=== PATIENT | male | born 1955 | race Caucasian/White ===

== ENCOUNTER 2018-04-07 18:25 | Inpatient (IN) | payer BC ==
[~2018-04-07] VITALS: Ht 177.8 cm; Wt 123.5 kg
[2018-04-07] MEDS ORDERED: ONDANSETRON INJ 2 MG/ML 2 ML VIAL IV STA (18:50)
[2018-04-07] MEDS ORDERED: DEXAMETHASONE IV STA (18:50)
[2018-04-07] MEDS ORDERED: KETOROLAC TROMETHAMINE 30 MG/ML VIAL IV STA (18:50)
[2018-04-07] MEDS ORDERED: MoRPHine SULFATE 10 MG/ML CARP/VIAL IV STA (18:50)
[2018-04-07] MEDS ORDERED: DEXTROSE 5% IV STA (18:50)
[2018-04-07] MEDS ORDERED: DEXAMETHASONE INJ 10 MG in SYRINGE 0 ML IV SCH (18:54)
[2018-04-07] MEDS ORDERED: HYDROmorphone INJ 2 MG/ML SYR/VIAL IV STA (20:29)
--- NOTE | 2018-04-07 20:40 | DIAGNOSTIC IMAGING REPORT ---
L-SPINE MIN 4 VIEWS ROUTINE CLINICAL HISTORY: Low back pain with right-sided radiculopathy. COMPARISON: None FINDINGS: 5 lumbar type vertebra are noted. Note is made of 5 mm anterolisthesis of L4 and L5. No fracture or suspicious lesion is noted. There is mild to moderate disc space narrowing and facet arthrosis of the lumbar spine with mild osteophytosis. IMPRESSION: 1. No acute lumbar spine fracture or subluxation. 2. 5 mm of anterolisthesis of L4 and L5. 3. Aecb-hb-eyflujjb multilevel disc space narrowing and facet arthrosis of the lumbar spine. Electronically signed by: Zi Haddad M.D. 04/07/2018 8:38 PM Dictated Date/Time: 04/07/2018 8:37 PM
[2018-04-07] MEDS ORDERED: OXYC-737 PO (20:47)
--- NOTE | 2018-04-07 20:49 | EMERGENCY ROOM VISIT NOTE ---
History First contact with patient: 18:35 Chief Complaint: HIP PAIN Stated Complaint: RIGHT HIP PAIN History of Present Illness The patient is a 62 year old male who presents to the Emergency Room with complaints of low back pain with pain radiating into his right buttocks and right legs. The patient states that on Tuesday he started with low back pain and pain radiating into his right buttocks. It then started going down his right leg. He went to his family doctor yesterday for his symptoms and was placed on Medrol Dosepak and Flexeril. He was not given any pain medication. He states the Flexeril is not helping. His family doctor is in law came in at [facility]. The patient denies any trauma to his back. The patient states the pain is worse with sitting. He states standing and leaning forward improves his pain. He describes the pain as a sharp pain. The patient denies any urinary symptoms of frequency, urgency, dysuria. The patient denies any loss of bowel or bladder control or any saddle anesthesia. The patient denies any history of chronic back pain. Review of Systems 10 system review was performed and was negative unless stated otherwise history of present illness. Past Medical/Surgical History Hypertension, diabetes Social History Smoking Status: Current Every Day Smoker Alcohol Use: occasionally Marital Status: Housing Status: lives with family Occupation Status: unemployed Physical Exam Vital Signs Date Time Temp Pulse Resp B/P (MAP) Pulse Ox O2 Delivery O2 Flow Rate FiO2 04/07/18 20:20 80 16 164/76 95 Room Air 04/07/18 18:29 36.0 91 18 202/78 96 Room Air Physical Exam PHYSICAL EXAM: Vital Signs were reviewed. Patient's blood pressure is elevated at 202/78 reviewed Nurse's notes and agree. GENERAL: 62-year-old white male appears uncomfortable secondary to back pain. MENTAL STATUS: Alert and oriented 3 LUMBAR SPINE: No gross bony abnormality noted. Patient is nontender to palpation over the spinous processes. He is tender to palpation over the right paravertebral region, left side nontender. He has limited range of motion secondary to pain. Pain elicited with flexion, extension and right lateral bending. Muscle strength is 5 out of 5 bilateral lower extremities and symmetrical. NEURO: Negative straight leg bilaterally. Unable to do thorough neuro exam secondary to patient's pain. Medical Decision & Procedures ER Provider Diagnostic Interpretation: L-SPINE MIN 4 VIEWS ROUTINE CLINICAL HISTORY: Low back pain with right-sided radiculopathy. COMPARISON: None FINDINGS: 5 lumbar type vertebra are noted. Note is made of 5 mm anterolisthesis of L4 and L5. No fracture or suspicious lesion is noted. There is mild to moderate disc space narrowing and facet arthrosis of the lumbar spine with mild osteophytosis. IMPRESSION: 1. No acute lumbar spine fracture or subluxation. 2. 5 mm of anterolisthesis of L4 and L5. 3. [id number]-[id number] multilevel disc space narrowing and facet arthrosis of the lumbar spine. Electronically signed by: Zi Haddad M.D. 04/07/2018 8:38 PM Medications Administered Medications (Trade) Dose Ordered Sig/Sander Route Start Time Stop Time Status Last Admin Dose Admin Ketorolac Tromethamine (Toradol Inj) 30 mg NOW STAT IV 04/07/18 18:50 04/07/18 18:54 DC 04/07/18 19:20 30 MG Morphine Sulfate (MoRPHine SULFATE INJ) 6 mg NOW STAT IV 04/07/18 18:50 04/07/18 18:54 DC 04/07/18 19:19 6 MG Ondansetron HCl (Zofran Inj) 4 mg NOW STAT IV 04/07/18 18:50 04/07/18 18:54 DC 04/07/18 19:18 4 MG Dexamethasone Sodium Phosphate 10 mg/Syringe 2.5 ml @ 1 mls/min TODAY@1854 IV 04/07/18 18:54 04/07/18 20:15 DC 04/07/18 20:10 1 MLS/MIN ED Course Patient was evaluated. IV access was obtained. The patient's blood pressure was elevated but he stated that he did not take his blood pressure medicine today. It was elevated at 202/78. It was later rechecked and was 164/76. The patient was given Decadron 10 mg IV, Toradol 30 mg IV, morphine 6 mg IV and Zofran 4 mg IV. The patient was reevaluated and was feeling better but was unable to ambulate even with a walker. Therefore the patient was given additional 2 mg of Dilaudid IV. X-ray of the lumbar spine was ordered interpreted by the radiologist as above with 5 mm anterior listhesis of the L4 on L5. Also multilevel disc space narrowing. The patient was informed of the findings. At this point the patient was awaiting his injection of Dilaudid. He was at the end of my shift and therefore the patient's case was signed out to Macie Babcock PA-C at the end of my shift. Please see her note for further patient care. Medical Decision Differential diagnosis include herniated lumbar disc, sciatica, lumbar fracture , spinal stenosis [place] Drug Monitoring Program Search Results: patient reviewed within database Medication Reconcilliation Current Medication List: was personally reviewed by me Blood Pressure Screening Patient's blood pressure: Elevated blood pressure Blood pressure disposition: Elevated BP felt to be situational Impression Primary Impression: Lumbar back pain with radiculopathy affecting right lower extremity Departure Information Condition GOOD Prescriptions Oxycodone Immediate Rel Tab (ROXICODONE IR) 5 Mg Tab 1-2 TAB PO Q4H Y for Pain, #24 TAB Prov: Brenda Talamantes PA-C 04/07/18 Referrals Mg Wilson M.D. (PCP) Marshall Rowe,D.O. Forms HOME CARE DOCUMENTATION FORM, IMPORTANT VISIT INFORMATION, WORK / SCHOOL INSTRUCTIONS Patient Instructions My [facility] Additional Instructions Ibuprofen 600 mg every 6 hours with food for pain. Continue Medrol Dosepak as prescribed. Continue Flexeril as prescribed. Take OxyIR as needed for more severe pain. Do not drive while taking the OxyIR. Call Dr. Rowe for follow- up appointment. If symptoms worsen in the interim, return to ER.
[2018-04-07] MEDS ORDERED: OXYCODONE IR HOME PACK PO ONE (21:45)
[2018-04-07] MEDS ORDERED: CYCL10TA6 PO (22:12)
[2018-04-07] MEDS ORDERED: SITA100T3 PO (22:12)
[2018-04-07] MEDS ORDERED: METF-384 PO (22:12)
[2018-04-07] MEDS ORDERED: ATOR-24 PO (22:12)
[2018-04-07] MEDS ORDERED: ACT30 PO (22:12)
[2018-04-07] MEDS ORDERED: METH1TAB81 PO (22:12)
[2018-04-07] MEDS ORDERED: LISI-729 PO (22:12)
--- NOTE | 2018-04-07 22:16 | EMERGENCY ROOM VISIT NOTE ---
ED Visit Note Care of this patient was signed out to me at change of shift by KIRIT Dominguez. Please see her dictation for full HPI, exam and ED course. At change of shift, the patient was awaiting pain medication and reevaluation. On my reevaluation, the patient was still unable to walk across the room. He could take 3-4 steps, then could not walk any further. At this time, he had already received narcotic medications 2 as well as Toradol and Decadron. His was not comfortable taking him home as she does not feel that she would be able to get him into the house and upstairs. I did inform them that if he was admitted this would likely be an observation and they are aware of this. An MRI was ordered and the case was discussed with the [facility] hospitalist service, who agreed to evaluate the patient.
--- NOTE | 2018-04-07 22:51 | DIAGNOSTIC IMAGING REPORT ---
MRI OF THE LUMBAR SPINE WITHOUT CONTRAST CLINICAL HISTORY: Low back pain with right-sided radiculopathy. Leg weakness. COMPARISON STUDY: Lumbar spine radiographs April 07, 2018. TECHNIQUE: Utilizing a 1.5 Thuy magnet and dedicated coil, multiplanar, multiecho imaging of the lumbar spine was performed without IV contrast. FINDINGS: For purposes of numbering on this exam, the L5-S1 disc space is assigned to axial image 27 of 30. There is 3 mm retrolisthesis of L4 and L5 due to facet arthrosis. Vertebral body heights are maintained. There is no suspicious marrow replacement. No intracanalicular mass or fluid collection is present. Conus terminates at the L1 level. Paravertebral soft tissues are unremarkable. L1-2: The central canal and the neural foramen are patent. L2-3: Tiny right paracentral disc protrusion is noted. Central canal and neural foramen are patent. L3-4: There is facet arthrosis. There is minimal disc bulge. Central canal and neural foramen are patent. L4-5: Note is made of grade I anterolisthesis due to facet arthrosis. There is uncovering of the disc. Note is made of a 7 mm right foraminal disc extrusion. This may contact the exiting right L4 nerve root. It is made of severe facet arthrosis at this level with ligamentous hypertrophy. There is moderate narrowing of the central canal and lateral recesses. L5-S1: A small central disc protrusion is noted. There is mild narrowing of the central canal. Neural foramen are patent. IMPRESSION: 1. 7 mm right foraminal disc extrusion at L4-L5 which may contact the right exiting right L4 nerve root. 2. Moderate central canal stenosis at L4-L5 due to mild anterolisthesis, uncovering of the disc, facet arthrosis and ligamentous hypertrophy. 3. Small central disc protrusion at L5-S1 that results in mild narrowing of the central canal. Electronically signed by: Zi Haddad M.D. 04/07/2018 10:49 PM Dictated Date/Time: 04/07/2018 10:42 PM
[2018-04-07 23:11] LABS: BASO % 0.1 %; BASO ABS # 0.01 K/uL (0-0.2); EOS % 0.2 %; EOS ABS # 0.03 K/uL (0-0.5); HEMATOCRIT 40.8 % (42-52); HEMOGLOBIN 14.1 g/dL (14.0-18.0); IG# 0.05 K/uL (0.00-0.02); LYMPH % 11.7 %; LYMPH ABS # 1.44 K/uL (1.2-3.4); MEAN CELL VOLUME 91.9 fL (80-100); MEAN CORPUSCULAR HEMOGLOBIN 31.8 pg (25-34); MEAN CORPUSCULAR HGB CONC 34.6 g/dl (32-36); MEAN PLATELET VOLUME 10.3 fL (7.4-10.4); MONO % 3.3 %; NEUT % 84.3 %; NEUT ABS # 10.33 K/uL (1.4-6.5); PLATELET COUNT 231 K/uL (130-400); RED CELL DISTRIBUTION WIDTH CV 12.9 % (11.5-14.5); RED CELL DISTRIBUTION WIDTH SD 43.4 fL (36.4-46.3); WHITE BLOOD COUNT 12.26 K/uL (4.8-10.8)
[2018-04-07 23:26] LABS: BLOOD UREA NITROGEN 15 mg/dl (7-18); CREATININE 1.04 mg/dl (0.60-1.40); GLUCOSE 203 mg/dl (70-99)
[2018-04-07 23:27] LABS: ALBUMIN 4.4 gm/dl (3.4-5.0); ALKALINE PHOSPHATASE 63 U/L (45-117); ALT/SGPT 59 U/L (12-78); AST/SGOT 25 U/L (15-37); CALCIUM 9.3 mg/dl (8.5-10.1); CARBON DIOXIDE 27 mmol/L (21-32); POTASSIUM 4.2 mmol/L (3.5-5.1); SODIUM 138 mmol/L (136-145); TOTAL PROTEIN 7.8 gm/dl (6.4-8.2)
[2018-04-08] MEDS ORDERED: ACETAMINOPHEN 325 MG TAB PO PRN (00:30)
[2018-04-08] MEDS ORDERED: GLUCOSE 40% GEL 15 GM TUBE PO PRN (00:45)
[2018-04-08] MEDS ORDERED: CARBOHYDRATES FOR HYPOGLYCEMIA PO PRN (00:45)
[2018-04-08] MEDS ORDERED: DEXTROSE 50% 50 ML SYR IV PRN (00:45)
[2018-04-08] MEDS ORDERED: DEXAMETHASONE INJ 10 MG in SYRINGE 0 ML IV STA (00:45)
[2018-04-08] MEDS ORDERED: ONDANSETRON INJ 2 MG/ML 2 ML VIAL IV PRN (00:45)
[2018-04-08] MEDS ORDERED: GLUCAGON FOR INJ 1 MG VIAL SQ PRN (00:45)
[2018-04-08] MEDS ORDERED: GLUCOSE 10 TABS/TUBE PO PRN (00:45)
[2018-04-08] MEDS ORDERED: DEXAMETHASONE SOD INJ 10 MG/ML VIAL ONE (00:52)
[2018-04-08 01:40] VITALS: BP 177/83; PULSE 73; TEMP 36.7; O2SAT 91; Ht 177.8 cm; Wt 123.5 kg
[2018-04-08] MEDS ORDERED: PATIENT'S HEIGHT AND/OR WEIGHT NEEDED SCH (02:00)
[2018-04-08] MEDS ORDERED: MoRPHine SULFATE 4 MG/ML 1 ML CARP\\VIAL IV PRN (03:30)
--- NOTE | 2018-04-08 05:02 | History and Physical ---
History & Physical Date & Time of Service: Apr 08, 2018 at 04:51 Chief Complaint: Lumbar Back Pain With Radiculopathy Affecting Primary Care Physician: Chava Georges PA-C History of Present Illness Source: patient, family The patient is a 62-year-old male who presents emergency department with severe low back pain radiating into right buttocks and right leg. When seen by his family doctor yesterday, he was given Medrol Dosepak and Flexeril, with little improvement. His pain is worse with sitting, and reports that standing and leaning forward improves his pain. He has not had any loss of bowel or bladder control. He denies any recent trauma. 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 Family History Noncontributory Social History Smoking Status: Current Every Day Smoker Smokeless Tobacco Use: No Alcohol Use: none Drug Use: none Marital Status: Housing status: lives with family Occupational Status: unemployed Immunizations History of Influenza Vaccine: Unknown History of Tetanus Vaccine?: Unknown History of Pneumococcal: Unknown History of Hepatitis B Vaccine: Unknown Allergies Coded Allergies: No Known Allergies (Unverified , 04/07/18) Home Medications Scheduled Atorvastatin (Lipitor), 40 MG PO DAILY Lisinopril (Zestril), 5 MG PO DAILY Metformin Hcl (Glucophage), 1,000 MG PO BID Methylprednisolone (Medrol), 4 MG PO UD Pioglitazone (Actos), 1 TAB PO DAILY Sitagliptin Phosphate (Januvia), 100 MG PO DAILY Scheduled PRN Cyclobenzaprine Hcl (Flexeril), 10 MG PO BID PRN for Muscle Spasms Oxycodone Immediate Rel Tab (Roxicodone Ir), 1-2 TAB PO Q4H PRN for Pain Review of Systems The patient denies chest pain, palpitations, shortness of breath, dyspnea on exertion, cough, lower extremity swelling, sore throat, fevers, chills, sweats, weight change, fatigue, nausea, vomiting, diarrhea , constipation, abdominal pain, pelvic pain, blood in urine or stool, dysuria, urinary frequency or urgency, lightheadedness , dizziness, headache, memory loss, loss of consciousness, rash, abnormal bruising or bleeding, imbalance, focal or generalized weakness, numbness or tingling in arms, generalized arthralgias or myalgias, neck pain, or night sweats. The review of systems is otherwise negative other than for that already noted above, and at least 10 systems have been reviewed. Physical Exam Vital Signs Date Time Temp Pulse Resp B/P (MAP) Pulse Ox O2 Delivery O2 Flow Rate FiO2 04/08/18 01:40 36.7 73 18 177/83 91 Room Air 04/08/18 00:58 80 18 142/63 93 Room Air 04/07/18 23:00 86 18 130/61 94 Room Air 04/07/18 20:20 80 16 164/76 95 Room Air 04/07/18 18:29 36.0 91 18 202/78 96 Room Air The patient is awake, alert and oriented 3, well developed and well nourished, normocephalic and atraumatic, lying in bed on his left side, and in no acute distress. HEENT--PERRL, EOMI, mucous membranes and oropharynx dry. Neck--supple. No JVD. No bruits. Thyroid normal, trachea midline, no adenopathy. Heart--normal S1 and S2. No murmurs, rubs or gallops. Lungs--clear bilaterally, no respiratory distress, no accessory muscle use. Abdomen--normal bowel sounds and soft. Nontender. Nondistended, no hernias or masses, no organomegaly. Extremities--no cyanosis or clubbing. No edema. There are good distal pulses b/ l. Dermatologic--normal skin turgor, normal color, no abnormal lymph nodes, no rash. Neurologic--cranial nerves II through XII grossly intact. Rheumatologic--normal range of motion. Psychiatric--normal affect. Diagnostics Laboratory Results Results Past 24 Hours Test 04/07/18 22:55 Range/Units White Blood Count 12.26 4.8-10.8 K/uL Red Blood Count 4.44 4.7-6.1 M/uL Hemoglobin 14.1 14.0-18.0 g/dL Hematocrit 40.8 42-52 % Mean Corpuscular Volume 91.9 80-100 fL Mean Corpuscular Hemoglobin 31.8 25-34 pg Mean Corpuscular Hemoglobin Concent 34.6 32-36 g/dl Platelet Count 231 130-400 K/uL Mean Platelet Volume 10.3 7.4-10.4 fL Neutrophils (%) (Auto) 84.3 % Lymphocytes (%) (Auto) 11.7 % Monocytes (%) (Auto) 3.3 % Eosinophils (%) (Auto) 0.2 % Basophils (%) (Auto) 0.1 % Neutrophils # (Auto) 10.33 1.4-6.5 K/uL Lymphocytes # (Auto) 1.44 1.2-3.4 K/uL Monocytes # (Auto) 0.40 0.11-0.59 K/uL Eosinophils # (Auto) 0.03 0-0.5 K/uL Basophils # (Auto) 0.01 0-0.2 K/uL RDW Standard Deviation 43.4 36.4-46.3 fL RDW Coefficient of Variation 12.9 11.5-14.5 % Immature Granulocyte % (Auto) 0.4 % Immature Granulocyte # (Auto) 0.05 0.00-0.02 K/uL Sodium Level 138 136-145 mmol/L Potassium Level 4.2 3.5-5.1 mmol/L Chloride Level 103 98-107 mmol/L Carbon Dioxide Level 27 21-32 mmol/L Anion Gap 7.0 3-11 mmol/L Blood Urea Nitrogen 15 7-18 mg/dl Creatinine 1.04 0.60-1.40 mg/dl Estimated GFR () 89.4 Estimated GFR (Non- 77.1 BUN/Creatinine Ratio 14.0 10-20 Random Glucose 203 70-99 mg/dl Calcium Level 9.3 8.5-10.1 mg/dl Total Bilirubin 0.5 0.2-1 mg/dl Direct Bilirubin 0.2 0-0.2 mg/dl Aspartate Amino Transf (AST/SGOT) 25 15-37 U/L Alanine Aminotransferase (ALT/SGPT) 59 12-78 U/L Alkaline Phosphatase 63 45-117 U/L Total Protein 7.8 6.4-8.2 gm/dl Albumin 4.4 3.4-5.0 gm/dl Diagnostic Radiology Patient Name: LINDA VIZCAINO Unit Number: [id number] Dictated: 04/07/182036 Transcribed: 04/07/182036 JA Printed Date/Time: [~ rep prt dt]/[~ rep prt tm] [~ rep ct labl] - [~ rep ct ivnm] [facility] [place] [address] Dictated: 04/07/182036 Transcribed: 04/07/182036 JA Printed Date/Time: [~ rep prt dt]/[~ rep prt tm] [~ rep ct labl] - [~ rep ct ivnm] L-SPINE MIN 4 VIEWS ROUTINE CLINICAL HISTORY: Low back pain with right-sided radiculopathy. COMPARISON: None FINDINGS: 5 lumbar type vertebra are noted. Note is made of 5 mm anterolisthesis of L4 and L5. No fracture or suspicious lesion is noted. There is mild to moderate disc space narrowing and facet arthrosis of the lumbar spine with mild osteophytosis. IMPRESSION: 1. No acute lumbar spine fracture or subluxation. 2. 5 mm of anterolisthesis of L4 and L5. 3. Yitq-lm-miiosksy multilevel disc space narrowing and facet arthrosis of the lumbar spine. Electronically signed by: Zi Haddad M.D. 04/07/2018 8:38 PM Dictated Date/Time: 04/07/2018 8:37 PM The status of this report is Signed. Draft = Not yet reviewed or approved by Radiologist. Signed = Reviewed and approved by Radiologist. <AttendingPhy></AttendingPhy> <FamilyPhy>Chava Georges PA-C</FamilyPhy> < PrimaryPhy>Chava Georges PA-C</PrimaryPhy> <UnitNumber>[id number]</UnitNumber> < VisitNumber>[id number]</VisitNumber> <PatientName>LINDA VIZCAINO</PatientName> < DateOfBirth>1955</DateOfBirth> <Location>[facility]</Location> <ServiceDate></ServiceDate> <MNE>ESINDI</MNE> <OrderingPhy>Brenda Talamantes PA-C</ OrderingPhy> <OrderingPhyMNE>f rep ord dr phillips</OrderingPhyMNE> <DictatingPhyMNE> f rep dict dr phillips</DictatingPhyMNE> <CCListMNE>f rep ct mne</CCListMNE> < AdmittingPhyMNE>f pt admit dr phillips</AdmittingPhyMNE> <AttendingPhyMNE>f pt attend dr phillips</AttendingPhyMNE> <ConsultingPhyMNE>f pt consult dr phillips</ConsultingPhyMNE> <FamilyPhyMNE>f pt fam dr phillips</FamilyPhyMNE> <OtherPhyMNE>f pt other dr phillips</OtherPhyMNE> < PrimaryPhyMNE>f pt prim care dr phillips</PrimaryPhyMNE> <ReferringPhyMNE>f pt referring dr phillips</ReferringPhyMNE> Patient Name: LINDA VIZCAINO Unit Number: [id number] Dictated: 04/07/182241 Transcribed: 04/07/182241 JA Printed Date/Time: [~ rep prt dt]/[~ rep prt tm] [~ rep ct labl] - [~ rep ct ivnm] [facility] [place] [address] Dictated: 04/07/182241 Transcribed: 04/07/182241 JA Printed Date/Time: [~ rep prt dt]/[~ rep prt tm] [~ rep ct labl] - [~ rep ct ivnm] [~ rep ct add3]] MRI OF THE LUMBAR SPINE WITHOUT CONTRAST CLINICAL HISTORY: Low back pain with right-sided radiculopathy. Leg weakness. COMPARISON STUDY: Lumbar spine radiographs April 07, 2018. TECHNIQUE: Utilizing a 1.5 Thuy magnet and dedicated coil, multiplanar, multiecho imaging of the lumbar spine was performed without IV contrast. FINDINGS: For purposes of numbering on this exam, the L5-S1 disc space is assigned to axial image 27 of 30. There is 3 mm retrolisthesis of L4 and L5 due to facet arthrosis. Vertebral body heights are maintained. There is no suspicious marrow replacement. No intracanalicular mass or fluid collection is present. Conus terminates at the L1 level. Paravertebral soft tissues are unremarkable. L1-2: The central canal and the neural foramen are patent. L2-3: Tiny right paracentral disc protrusion is noted. Central canal and neural foramen are patent. L3-4: There is facet arthrosis. There is minimal disc bulge. Central canal and neural foramen are patent. L4-5: Note is made of grade I anterolisthesis due to facet arthrosis. There is uncovering of the disc. Note is made of a 7 mm right foraminal disc extrusion. This may contact the exiting right L4 nerve root. It is made of severe facet arthrosis at this level with ligamentous hypertrophy. There is moderate narrowing of the central canal and lateral recesses. L5-S1: A small central disc protrusion is noted. There is mild narrowing of the central canal. Neural foramen are patent. IMPRESSION: 1. 7 mm right foraminal disc extrusion at L4-L5 which may contact the right exiting right L4 nerve root. 2. Moderate central canal stenosis at L4-L5 due to mild anterolisthesis, uncovering of the disc, facet arthrosis and ligamentous hypertrophy. 3. Small central disc protrusion at L5-S1 that results in mild narrowing of the central canal. Electronically signed by: Zi Haddad M.D. 04/07/2018 10:49 PM Dictated Date/Time: 04/07/2018 10:42 PM The status of this report is Signed. Draft = Not yet reviewed or approved by Radiologist. Signed = Reviewed and approved by Radiologist. <AttendingPhy></AttendingPhy> <FamilyPhy>Chava Georges PA-C</FamilyPhy> < PrimaryPhy>Chava Georges PA-C</PrimaryPhy> <UnitNumber>[id number]</UnitNumber> < VisitNumber>[id number]</VisitNumber> <PatientName>LINDA VIZCAINO</PatientName> < DateOfBirth>1955</DateOfBirth> <Location>[facility]</Location> <ServiceDate></ServiceDate> <MNE>ESINDI</MNE> <OrderingPhy>Macie Babcock PA-C</ OrderingPhy> <OrderingPhyMNE>f rep ord dr phillips</OrderingPhyMNE> <DictatingPhyMNE> f rep dict dr phillips</DictatingPhyMNE> <CCListMNE>f rep ct jacqueline</CCListMNE> < AdmittingPhyMNE>f pt admit dr phillips</AdmittingPhyMNE> <AttendingPhyMNE>f pt attend dr phillips</AttendingPhyMNE> <ConsultingPhyMNE>f pt consult dr mne</ConsultingPhyMNE> <FamilyPhyMNE>f pt fam dr phillips</FamilyPhyMNE> <OtherPhyMNE>f pt other dr phillips</OtherPhyMNE> < PrimaryPhyMNE>f pt prim care dr phillips</PrimaryPhyMNE> <ReferringPhyMNE>f pt referring dr phillips</ReferringPhyMNE> Impression Assessment and Plan Lumbar degenerative disc disease/7 mm right foraminal disc extrusion at L4-L5 which may contact the right L4 exiting nerve root/moderate central canal stenosis at L4-5 with facet arthrosis and ligamentous hypertrophy/small central disc protrusion at L5-S1 causing mild narrowing of the central canal-- Admit to nonmonitored bed. Give Decadron 10 mg IV now. Continue Decadron at 4 mg IV every 6 hours. Continue Flexeril 10 mg p.o. 4 times daily as needed muscle spasm. K pad. [place] 5/325, 1 p.o. every 6 hours as needed moderate pain. Morphine sulfate 4 mg IV every 2 hours as needed severe pain. Consult Dr. Rowe from orthopedic spine surgery. Diabetes mellitus--placed on Accu-Cheks before meals and at bedtime with NovoLog coverage per scale. Hyperlipidemia-- Continue atorvastatin 40 mg daily. Advanced Directives Existing Advance Directive: No Existing Living Will: No Existing Power of Auditing Manager: No Resuscitation Status VTE Prophylaxis Will order VTE Prophylaxis: Yes Social Service Consult None Apply
[2018-04-08] MEDS: DEXAMETHASONE INJ 4 MG in SYRINGE 0 ML IV SCH ×3 (06:13→18:55)
[2018-04-08 06:45] VITALS: BP 160/80; PULSE 66; TEMP 36.7; O2SAT 93
[2018-04-08] MEDS: ACETAMINOPHEN IV 100 ML IV PRN (07:39)
[2018-04-08] MEDS: ATORVASTATIN 20 MG TAB PO SCH (07:39)
[2018-04-08] MEDS: CYCLOBENZAPRINE HCL 10 MG TAB PO PRN (07:39)
--- NOTE | 2018-04-08 08:59 | Orthopedic Consultation ---
Orthopedic Consultation Date of Consultation: Apr 08, 2018. Attending Physician: Marshall Ornelas M.D. 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 He states on Tuesday began experiencing back and right buttock as well as thigh and pain radiating below the knee. He denies any specific trauma fall or event. He denies any previous history of significant back issues injections or therapy. He states his left lower extremity is asymptomatic. He was unable to sleep secondary to pain. He came to emergency room seeking help and was subsequently admitted. X-rays of lumbar spine demonstrates significant multilevel spondylosis with anterolisthesis L4-5. MRI confirms marked facet hypertrophy evidence of instability of L4-5. There is adjacent level spondylosis throughout the spine as well as midline disc protrusion at L5-S1. There is a disc herniation with migration out into the lateral recess and foraminal L4-5 on the right. This is concordant with his symptoms. Past Medical/Surgical History Medical Problems: (1) Lumbar back pain with radiculopathy affecting right lower extremity Status: Acute Social History Smoking Status: Current Every Day Smoker Smokeless Tobacco Use: No Alcohol Use: none Drug Use: none Marital Status: Housing Status: lives with family Occupation Status: unemployed Allergies Coded Allergies: No Known Allergies (Unverified , 04/07/18) Home Medications Scheduled Atorvastatin (Lipitor), 40 MG PO DAILY Lisinopril (Zestril), 5 MG PO DAILY Metformin Hcl (Glucophage), 1,000 MG PO BID Methylprednisolone (Medrol), 4 MG PO UD Pioglitazone (Actos), 1 TAB PO DAILY Sitagliptin Phosphate (Januvia), 100 MG PO DAILY Scheduled PRN Cyclobenzaprine Hcl (Flexeril), 10 MG PO BID PRN for Muscle Spasms Oxycodone Immediate Rel Tab (Roxicodone Ir), 1-2 TAB PO Q4H PRN for Pain Current Inpatient Medications Current Inpatient Medications Medications (Trade) Dose Ordered Sig/Sander Route Start Time Stop Time Status Last Admin Dose Admin Acetaminophen (Tylenol Tab) 650 mg Q4H PRN PO 04/08/18 00:30 05/08/18 00:29 Heparin Sodium (Porcine) (Heparin Sq 5000 Unit/0.5ml) 5,000 unit Q12H SQ 04/08/18 09:00 05/08/18 08:59 UNV Atorvastatin Calcium (Lipitor Tab) 40 mg DAILY PO 04/08/18 09:00 05/08/18 08:59 04/08/18 07:39 40 MG Cyclobenzaprine HCl (Flexeril Tab) 10 mg QID PRN PO 04/08/18 00:30 05/08/18 00:29 04/08/18 07:39 10 MG Ondansetron HCl (Zofran Inj) 4 mg Q6H PRN IV 04/08/18 00:45 05/08/18 00:44 Insulin Aspart (novoLOG ASPART) SLIDING SCALE If C... ACHS SC 04/08/18 07:00 05/08/18 06:59 Glucose (Glucose 40% Gel) 15-30 GRAMS 15 GRAMS... UD PRN PO 04/08/18 00:45 05/08/18 00:44 Glucose (Glucose Chew Tab) 4-8 Tablets 4 Tabl... UD PRN PO 04/08/18 00:45 05/08/18 00:44 Dextrose (Dextrose 50% 50ML Syringe) 25-50ML OF 50% DW IV FOR... UD PRN IV 04/08/18 00:45 05/08/18 00:44 Glucagon (Glucagon Inj) 1 mg UD PRN SQ 04/08/18 00:45 05/08/18 00:44 Carbohydrates (Carbohydrates For Hypoglycemia) 15-30 GRAMS 15 grams if BSG 54-69... UD PRN PO 04/08/18 00:45 05/08/18 00:44 Acetaminophen 100 ml @ 400 mls/hr Q8H PRN IV 04/08/18 00:45 05/08/18 00:44 04/08/18 07:39 400 MLS/HR Acetaminophen/ Hydrocodone Bitart ([place] 5/325 Tab) 1 tab Q6H PRN PO 04/08/18 03:30 04/22/18 03:29 Morphine Sulfate (MoRPHine SULFATE INJ) 4 mg Q2H PRN IV 04/08/18 03:30 04/22/18 03:29 Dexamethasone Sodium Phosphate 4 mg/Syringe 1 ml @ 1 mls/min Q6H IV 04/08/18 06:45 05/08/18 06:44 7/28/18 06:13 1 MLS/MIN Physical Exam Date Time Temp Pulse Resp B/P (MAP) Pulse Ox O2 Delivery O2 Flow Rate FiO2 04/08/18 07:39 Room Air 04/08/18 06:45 36.7 66 18 160/80 (106) 93 Room Air 04/08/18 02:00 Room Air 04/08/18 01:40 36.7 73 18 177/83 91 Room Air 04/08/18 00:58 80 18 142/63 93 Room Air 04/07/18 23:00 86 18 130/61 94 Room Air 04/07/18 20:20 80 16 164/76 95 Room Air 04/07/18 18:29 36.0 91 18 202/78 96 Room Air On exam he is in obvious distress. He is lying on his side. He is holding his right buttock to help alleviate his pain. He exhibits no significant decrease in sensation. He has reasonable dorsiflexion and extensor hallucis longus. He states he has marked difficulty standing and ambulating and did not have him perform this this morning secondary to his pain. He exhibits significant tension signs with straight leg raising. Laboratory Results Last 24 Hours Test 04/07/18 22:55 04/08/18 07:53 04/08/18 08:21 White Blood Count 12.26 K/uL Red Blood Count 4.44 M/uL Hemoglobin 14.1 g/dL Hematocrit 40.8 % Mean Corpuscular Volume 91.9 fL Mean Corpuscular Hemoglobin 31.8 pg Mean Corpuscular Hemoglobin Concent 34.6 g/dl Platelet Count 231 K/uL Mean Platelet Volume 10.3 fL Neutrophils (%) (Auto) 84.3 % Lymphocytes (%) (Auto) 11.7 % Monocytes (%) (Auto) 3.3 % Eosinophils (%) (Auto) 0.2 % Basophils (%) (Auto) 0.1 % Neutrophils # (Auto) 10.33 K/uL Lymphocytes # (Auto) 1.44 K/uL Monocytes # (Auto) 0.40 K/uL Eosinophils # (Auto) 0.03 K/uL Basophils # (Auto) 0.01 K/uL RDW Standard Deviation 43.4 fL RDW Coefficient of Variation 12.9 % Immature Granulocyte % (Auto) 0.4 % Immature Granulocyte # (Auto) 0.05 K/uL Sodium Level 138 mmol/L Potassium Level 4.2 mmol/L Chloride Level 103 mmol/L Carbon Dioxide Level 27 mmol/L Anion Gap 7.0 mmol/L Blood Urea Nitrogen 15 mg/dl Creatinine 1.04 mg/dl Estimated GFR () 89.4 Estimated GFR (Non- 77.1 BUN/Creatinine Ratio 14.0 Random Glucose 203 mg/dl Calcium Level 9.3 mg/dl Total Bilirubin 0.5 mg/dl Direct Bilirubin 0.2 mg/dl Aspartate Amino Transf (AST/SGOT) 25 U/L Alanine Aminotransferase (ALT/SGPT) 59 U/L Alkaline Phosphatase 63 U/L Total Protein 7.8 gm/dl Albumin 4.4 gm/dl Prothrombin Time 10.6 SECONDS Prothromb Time International Ratio 1.0 Bedside Glucose 261 mg/dl Assessment & Plan Assessment spinal stenosis or nucleus pulposus L4-5 with spinal listhesis. Plan discussed with this patient reviewing his imaging findings and clinical course. At this time he has several options. He could continue with pain management possible consultation with interventional pain management for injections versus surgical intervention. Surgery would require lumbar decompression and fusion. This would allow us to address the severe facet hypertrophy and instability as well as removal of the herniated nucleus pulposus. He was coming to consider his options and notify us which way he would like to proceed.
[2018-04-08] MEDS: INSULIN ASPART 100 UNITS/ML 3 ML PEN SC SCH ×4 (09:39→20:59)
[2018-04-08] MEDS: HEPARIN SOD 5000 UNIT/0.5 ML CARP SQ SCH ×2 (11:06→21:01)
--- NOTE | 2018-04-08 13:54 | Hospitalist Progress Note ---
Hospitalist Progress Note Date of Service Apr 08, 2018. (Miya Moya .MICHEL) Subjective Pt evaluation today including: conversation w/ patient, physical exam, chart review, lab review, review of inpatient medication list Voiding: no voiding problems Mr. Jensen is experiencing lower back pain that radiates to his hip and also his right lateral toes which are numb. He is unsure about precipitating event but he did help his daughter move two Wednesdays ago and then developed this pain on Tuesday. He is currently finding some relief with offloading the right hip while sitting, hot pad, and morphine ROS Constitutional: no chills, aches, sweats or fever Respiratory: no sob,cough, sputum, or wheezing Cardiac: no chest pain, palpitations, edema, orthopnea or lightheadedness GI: no abdominal pain, nausea, vomiting, diarrhea or constipation : no dysuria or hesitancy Extremities: no joint pain or weakness Skin: no rash All other systems reviewed and negative (Miya Moya .MICHEL) Medications Medications Administered Medications (Trade) Dose Ordered Sig/Sander Route Start Time Stop Time Status Last Admin Dose Admin Ketorolac Tromethamine (Toradol Inj) 30 mg NOW STAT IV 04/07/18 18:50 04/07/18 18:54 DC 04/07/18 19:20 30 MG Morphine Sulfate (MoRPHine SULFATE INJ) 6 mg NOW STAT IV 04/07/18 18:50 04/07/18 18:54 DC 04/07/18 19:19 6 MG Ondansetron HCl (Zofran Inj) 4 mg NOW STAT IV 04/07/18 18:50 04/07/18 18:54 DC 04/07/18 19:18 4 MG Dexamethasone Sodium Phosphate 10 mg/Syringe 2.5 ml @ 1 mls/min TODAY@1854 IV 04/07/18 18:54 04/07/18 20:15 DC 04/07/18 20:10 1 MLS/MIN Hydromorphone HCl (Dilaudid Inj) 2 mg NOW STAT IV 04/07/18 20:29 04/07/18 20:30 DC 04/07/18 20:50 2 MG Heparin Sodium (Porcine) (Heparin Sq 5000 Unit/0.5ml) 5,000 unit Q12 SQ 04/08/18 09:00 05/08/18 08:59 04/08/18 11:06 5,000 UNIT Atorvastatin Calcium (Lipitor Tab) 40 mg DAILY PO 04/08/18 09:00 05/08/18 08:59 04/08/18 07:39 40 MG Cyclobenzaprine HCl (Flexeril Tab) 10 mg QID PRN PO 04/08/18 00:30 05/08/18 00:29 04/08/18 07:39 10 MG Insulin Aspart (novoLOG ASPART) SLIDING SCALE If C... ACHS SC 04/08/18 07:00 05/08/18 06:59 04/08/18 09:39 8 UNITS Acetaminophen 100 ml @ 400 mls/hr Q8H PRN IV 04/08/18 00:45 05/08/18 00:44 04/08/18 07:39 400 MLS/HR Morphine Sulfate (MoRPHine SULFATE INJ) 4 mg Q2H PRN IV 04/08/18 03:30 04/22/18 03:29 04/08/18 09:42 4 MG Dexamethasone Sodium Phosphate 4 mg/Syringe 1 ml @ 1 mls/min Q6H IV 04/08/18 06:45 05/08/18 06:44 04/08/18 06:13 1 MLS/MIN Dexamethasone Sodium Phosphate (Decadron Inj) 10 mg STK-MED ONCE .ROUTE 04/08/18 00:52 04/08/18 00:53 DC 04/08/18 00:55 10 MG (Miya Moya CRNP) Objective Vital Signs Date Time Temp Pulse Resp B/P (MAP) Pulse Ox O2 Delivery O2 Flow Rate FiO2 04/08/18 07:39 Room Air 04/08/18 06:45 36.7 66 18 160/80 (106) 93 Room Air 04/08/18 02:00 Room Air 04/08/18 01:40 36.7 73 18 177/83 91 Room Air 04/08/18 00:58 80 18 142/63 93 Room Air 04/07/18 23:00 86 18 130/61 94 Room Air 04/07/18 20:20 80 16 164/76 95 Room Air 04/07/18 18:29 36.0 91 18 202/78 96 Room Air (Miya Moya CRNP) Physical Exam Notes: General: no distress Eyes: normal inspection, PERLL Respiratory: chest non tender, clear to auscultation, normal breath sounds, no respiratory distress, no accessory muscle use Cardiac: regular rate and rhythm, no rub or gallop, no murmur, no edema, no jvd GI/: active bowel sounds, no abd pain or tenderness, soft, non distended Extremities: normal range of motion, normal strength, non tender Neuro/Psych: alert and oriented x 3, normal mood and affect Skin: normal color, dry (Miya Moya, MICHEL) Laboratory Results Last 24 Hours Test 04/07/18 22:55 04/08/18 07:53 04/08/18 08:21 04/08/18 11:49 White Blood Count 12.26 K/uL Red Blood Count 4.44 M/uL Hemoglobin 14.1 g/dL Hematocrit 40.8 % Mean Corpuscular Volume 91.9 fL Mean Corpuscular Hemoglobin 31.8 pg Mean Corpuscular Hemoglobin Concent 34.6 g/dl Platelet Count 231 K/uL Mean Platelet Volume 10.3 fL Neutrophils (%) (Auto) 84.3 % Lymphocytes (%) (Auto) 11.7 % Monocytes (%) (Auto) 3.3 % Eosinophils (%) (Auto) 0.2 % Basophils (%) (Auto) 0.1 % Neutrophils # (Auto) 10.33 K/uL Lymphocytes # (Auto) 1.44 K/uL Monocytes # (Auto) 0.40 K/uL Eosinophils # (Auto) 0.03 K/uL Basophils # (Auto) 0.01 K/uL RDW Standard Deviation 43.4 fL RDW Coefficient of Variation 12.9 % Immature Granulocyte % (Auto) 0.4 % Immature Granulocyte # (Auto) 0.05 K/uL Sodium Level 138 mmol/L Potassium Level 4.2 mmol/L Chloride Level 103 mmol/L Carbon Dioxide Level 27 mmol/L Anion Gap 7.0 mmol/L Blood Urea Nitrogen 15 mg/dl Creatinine 1.04 mg/dl Estimated GFR () 89.4 Estimated GFR (Non- 77.1 BUN/Creatinine Ratio 14.0 Random Glucose 203 mg/dl Calcium Level 9.3 mg/dl Total Bilirubin 0.5 mg/dl Direct Bilirubin 0.2 mg/dl Aspartate Amino Transf (AST/SGOT) 25 U/L Alanine Aminotransferase (ALT/SGPT) 59 U/L Alkaline Phosphatase 63 U/L Total Protein 7.8 gm/dl Albumin 4.4 gm/dl Prothrombin Time 10.6 SECONDS Prothromb Time International Ratio 1.0 Bedside Glucose 261 mg/dl 262 mg/dl (Miya Moya CRNP) Assessment and Plan Mr. Jensen is a 62 year old man here for acute lower back pain - Lumbar degenerative disc disease/7 mm right foraminal disc extrusion at L4-L5 which may contact the right L4 exiting nerve root/moderate central canal stenosis at L4-5 with facet arthrosis and ligamentous hypertrophy/small central disc protrusion at L5-S1 causing mild narrowing of the central canal-- - Continue Decadron at 4 mg IV every 6 hours. - Continue Flexeril 10 mg p.o. 4 times daily as needed muscle spasm. - K pad. - [place] 5/325, 1 p.o. every 6 hours as needed moderate pain. - Morphine sulfate 4 mg IV every 2 hours as needed severe pain. - Consult Dr. Rowe from orthopedic spine surgery - patient is considering surgery vs pain management trial Diabetes mellitus II - bsgs ac & hs, ss Hyperlipidemia-- Continue atorvastatin 40 mg daily. Mr. 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 He does however have to take breaks when going up stairs or he becomes sob. He does not have a cardiac history or history of heart failure. He is hyperglycemic with steroids here at the hospital but did not previously have a history of diabetes. His RCRI is 0.9% risk of cardiac complications after surgery. He is optimized for surgery should he decide to have it. Will order EKG and chest X-ray (Miya Moya CRNP) [employer] Physician Supervision Note: I discussed with Miya Moya [employer] and agree with findings and plan as documented in the note. Any exceptions or clarifications are listed here: None Patient is here with a herniated disc with radicular symptoms. He is comorbid conditions include diabetes. He was seen by orthopedic spine surgery is scheduled for possible surgical intervention early next week. Patient has reasonable pain control and will continue with diabetic management Documented By: Braden Jarrett (Braden Jarrett M.D.)
[2018-04-08] MEDS: HYDROCODONE/ACETAMIN 5/325MG TAB PO PRN (14:31)
--- NOTE | 2018-04-08 14:43 | DIAGNOSTIC IMAGING REPORT ---
CHEST 2 VIEWS ROUTINE CLINICAL HISTORY: Preoperative chest COMPARISON STUDY: No previous studies for comparison. FINDINGS: The heart is the upper limits of normal in size. There is no focal pulmonary consolidation. There are low lung volumes with mild interstitial thickening. There is minor blunting of the left lateral costophrenic angle.[ IMPRESSION: 1. Low lung volumes with mild interstitial thickening. 2. No evidence of lobar consolidation 3. No evidence of overt failure 4. Minor blunting of the left lateral costophrenic angle Electronically signed by: Mekhi Rodriguez M.D. 04/08/2018 2:41 PM Dictated Date/Time: 04/08/2018 2:40 PM
[2018-04-08 15:18] VITALS: BP 159/69; PULSE 86; TEMP 36.7; O2SAT 92
[2018-04-08 16:45] VITALS: O2SAT 92
[2018-04-08] MEDS ORDERED: MoRPHine SULFATE 2 MG/ML CARP IV PRN (16:45)
[2018-04-08 23:00] VITALS: BP_SYST 196; BP_SYST 200; BP_DIAS 80; BP_DIAS 95; PULSE 87; TEMP 36.8; O2SAT 92
[2018-04-08 23:20] VITALS: BP_SYST 181; BP_SYST 210; BP_DIAS 84; BP_DIAS 88; PULSE 72; PULSE 74
[2018-04-08] MEDS ORDERED: LISINOPRIL/HCTZ 20/12.5MG TAB PO STA (23:42)
[2018-04-09] MEDS: DEXAMETHASONE INJ 4 MG in SYRINGE 0 ML IV SCH ×3 (01:12→18:30)
[2018-04-09 01:17] VITALS: BP_SYST 168; BP_DIAS 71; BP_DIAS 76; PULSE 71
[2018-04-09] MEDS: ACETAMINOPHEN IV 100 ML IV PRN (05:20)
[2018-04-09 06:30] LABS: PTT PATIENT 24.3 SECONDS (21.0-31.0)
[2018-04-09 06:40] LABS: CALCIUM 8.9 mg/dl (8.5-10.1); CREATININE 0.97 mg/dl (0.60-1.40); POTASSIUM 3.9 mmol/L (3.5-5.1); TOTAL PROTEIN 7.7 gm/dl (6.4-8.2)
[2018-04-09 07:10] LABS: BASO % 0.1 %; BASO ABS # 0.01 K/uL (0-0.2); HEMATOCRIT 42.6 % (42-52); HEMOGLOBIN 14.8 g/dL (14.0-18.0); IG# 0.07 K/uL (0.00-0.02); LYMPH % 8.3 %; LYMPH ABS # 1.31 K/uL (1.2-3.4); MEAN CELL VOLUME 91.6 fL (80-100); MEAN CORPUSCULAR HEMOGLOBIN 31.8 pg (25-34); MEAN CORPUSCULAR HGB CONC 34.7 g/dl (32-36); MEAN PLATELET VOLUME 11.1 fL (7.4-10.4); MONO % 5.4 %; MONO ABS # 0.84 K/uL (0.11-0.59); NEUT % 85.8 %; NEUT ABS # 13.47 K/uL (1.4-6.5); PLATELET COUNT 274 K/uL (130-400); RED CELL DISTRIBUTION WIDTH CV 12.8 % (11.5-14.5)
[2018-04-09 07:13] VITALS: BP 188/78; PULSE 66; TEMP 36.5; O2SAT 93
[2018-04-09] MEDS: LISINOPRIL/HCTZ 20/12.5MG TAB PO SCH (08:49)
[2018-04-09] MEDS: ATORVASTATIN 20 MG TAB PO SCH (08:49)
[2018-04-09] MEDS: INSULIN ASPART 100 UNITS/ML 3 ML PEN SC SCH ×5 (08:56→23:54)
[2018-04-09] MEDS: HEPARIN SOD 5000 UNIT/0.5 ML CARP SQ SCH ×2 (08:57→21:27)
--- NOTE | 2018-04-09 10:51 | Progress Note ---
Progress Note Date of Service Apr 09, 2018. Progress Note Patient still complaining significant right leg pain inability to stand or ambulate. Again I reviewed his options which include interventional pain management versus surgery. At this time he is unsure which direction to go. He understands that surgery would require up to 2-3 months without being able to return to work. This is quite concerning to the patient understandably. This point he is still unsure will notify us how would like to proceed.
--- NOTE | 2018-04-09 11:42 | Hospitalist Progress Note ---
Hospitalist Progress Note Date of Service Apr 09, 2018. Subjective Pt evaluation today including: conversation w/ patient, physical exam, chart review, lab review, review of inpatient medication list Voiding: no voiding problems Mr. Jensen continues to have pain that radiates down his right thigh. He denies loss of control of bowel or bladder or saddle anesthesia. He is unsure if he would like to undergo surgery. ROS Constitutional: no chills, aches, sweats or fever Respiratory: no sob,cough, sputum, or wheezing Cardiac: no chest pain, palpitations, edema, orthopnea or lightheadedness GI: no abdominal pain, nausea, vomiting, diarrhea or constipation : no dysuria or hesitancy Extremities: see HPI Skin: no rash All other systems reviewed and negative Medications Medications Administered Medications (Trade) Dose Ordered Sig/Sander Route Start Time Stop Time Status Last Admin Dose Admin Ketorolac Tromethamine (Toradol Inj) 30 mg NOW STAT IV 04/07/18 18:50 04/07/18 18:54 DC 04/07/18 19:20 30 MG Morphine Sulfate (MoRPHine SULFATE INJ) 6 mg NOW STAT IV 04/07/18 18:50 04/07/18 18:54 DC 04/07/18 19:19 6 MG Ondansetron HCl (Zofran Inj) 4 mg NOW STAT IV 04/07/18 18:50 04/07/18 18:54 DC 04/07/18 19:18 4 MG Dexamethasone Sodium Phosphate 10 mg/Syringe 2.5 ml @ 1 mls/min TODAY@1854 IV 04/07/18 18:54 04/07/18 20:15 DC 04/07/18 20:10 1 MLS/MIN Hydromorphone HCl (Dilaudid Inj) 2 mg NOW STAT IV 04/07/18 20:29 04/07/18 20:30 DC 04/07/18 20:50 2 MG Heparin Sodium (Porcine) (Heparin Sq 5000 Unit/0.5ml) 5,000 unit Q12 SQ 04/08/18 09:00 05/08/18 08:59 04/09/18 08:57 5,000 UNIT Atorvastatin Calcium (Lipitor Tab) 40 mg DAILY PO 04/08/18 09:00 05/08/18 08:59 04/09/18 08:49 40 MG Cyclobenzaprine HCl (Flexeril Tab) 10 mg QID PRN PO 04/08/18 00:30 05/08/18 00:29 04/08/18 07:39 10 MG Insulin Aspart (novoLOG ASPART) SLIDING SCALE If C... ACHS SC 04/08/18 07:00 05/08/18 06:59 04/09/18 08:56 8 UNITS Acetaminophen 100 ml @ 400 mls/hr Q8H PRN IV 04/08/18 00:45 05/08/18 00:44 04/09/18 05:20 400 MLS/HR Acetaminophen/ Hydrocodone Bitart ([place] 5/325 Tab) 1 tab Q6H PRN PO 04/08/18 03:30 04/22/18 03:29 04/08/18 14:31 1 TAB Morphine Sulfate (MoRPHine SULFATE INJ) 4 mg Q2H PRN IV 04/08/18 03:30 04/08/18 16:39 DC 04/08/18 09:42 4 MG Dexamethasone Sodium Phosphate 4 mg/Syringe 1 ml @ 1 mls/min Q6H IV 04/08/18 06:45 05/08/18 06:44 04/09/18 06:19 1 MLS/MIN Dexamethasone Sodium Phosphate (Decadron Inj) 10 mg STK-MED ONCE .ROUTE 04/08/18 00:52 04/08/18 00:53 DC 04/08/18 00:55 10 MG HCTZ/Lisinopril (Prinzide 20-12.5MG Tab) 1 tab NOW STAT PO 04/08/18 23:42 04/08/18 23:43 DC 04/08/18 23:47 1 TAB HCTZ/Lisinopril (Prinzide 20-12.5MG Tab) 1 tab QAM PO 04/09/18 09:00 05/09/18 08:59 04/09/18 08:49 1 TAB Objective Vital Signs Date Time Temp Pulse Resp B/P (MAP) Pulse Ox O2 Delivery O2 Flow Rate FiO2 04/09/18 07:30 Room Air 04/09/18 07:13 36.5 66 18 188/78 (114) 93 Room Air 04/09/18 01:17 71 168/76 (106) 04/08/18 23:20 72 181/88 (119) 04/08/18 23:20 74 210/84 (126) 04/08/18 23:15 Room Air 04/08/18 23:00 36.8 87 18 196/80 (118) 92 Room Air 200/95 (130) 04/08/18 16:45 92 Room Air 04/08/18 15:18 36.7 86 20 159/69 (99) 92 Room Air Physical Exam Notes: General: no distress Eyes: normal inspection, PERLL Respiratory: chest non tender, clear to auscultation, normal breath sounds, no respiratory distress, no accessory muscle use Cardiac: regular rate and rhythm, no rub or gallop, no murmur, no edema, no jvd GI/: active bowel sounds, no abd pain or tenderness, soft, non distended Extremities: normal range of motion, normal strength, non tender Neuro/Psych: alert and oriented x 3, normal mood and affect Skin: normal color, dry Laboratory Results Last 24 Hours Test 04/08/18 11:49 04/08/18 17:04 04/08/18 20:38 04/09/18 05:48 Bedside Glucose 262 mg/dl 207 mg/dl 232 mg/dl White Blood Count 15.70 K/uL Red Blood Count 4.65 M/uL Hemoglobin 14.8 g/dL Hematocrit 42.6 % Mean Corpuscular Volume 91.6 fL Mean Corpuscular Hemoglobin 31.8 pg Mean Corpuscular Hemoglobin Concent 34.7 g/dl Platelet Count 274 K/uL Mean Platelet Volume 11.1 fL Neutrophils (%) (Auto) 85.8 % Lymphocytes (%) (Auto) 8.3 % Monocytes (%) (Auto) 5.4 % Eosinophils (%) (Auto) 0.0 % Basophils (%) (Auto) 0.1 % Neutrophils # (Auto) 13.47 K/uL Lymphocytes # (Auto) 1.31 K/uL Monocytes # (Auto) 0.84 K/uL Eosinophils # (Auto) 0.00 K/uL Basophils # (Auto) 0.01 K/uL RDW Standard Deviation 43.0 fL RDW Coefficient of Variation 12.8 % Immature Granulocyte % (Auto) 0.4 % Immature Granulocyte # (Auto) 0.07 K/uL Prothrombin Time 10.4 SECONDS Prothromb Time International Ratio 1.0 Activated Partial Thromboplast Time 24.3 SECONDS Partial Thromboplastin Ratio 0.9 Sodium Level 133 mmol/L Potassium Level 3.9 mmol/L Chloride Level 100 mmol/L Carbon Dioxide Level 25 mmol/L Anion Gap 8.0 mmol/L Blood Urea Nitrogen 22 mg/dl Creatinine 0.97 mg/dl Est Creatinine Clear Calc Drug Dose 105.4 ml/min Estimated GFR () 97.3 Estimated GFR (Non- 83.9 BUN/Creatinine Ratio 22.4 Random Glucose 271 mg/dl Calcium Level 8.9 mg/dl Magnesium Level 2.2 mg/dl Total Bilirubin 0.7 mg/dl Direct Bilirubin 0.2 mg/dl Aspartate Amino Transf (AST/SGOT) 20 U/L Alanine Aminotransferase (ALT/SGPT) 52 U/L Alkaline Phosphatase 67 U/L Total Protein 7.7 gm/dl Albumin 4.0 gm/dl Test 04/09/18 08:07 Bedside Glucose 267 mg/dl Assessment and Plan Mr. Jensen is a 62 year old man here for acute lower back pain - Lumbar degenerative disc disease/7 mm right foraminal disc extrusion at L4-L5 which may contact the right L4 exiting nerve root/moderate central canal stenosis at L4-5 with facet arthrosis and ligamentous hypertrophy/small central disc protrusion at L5-S1 causing mild narrowing of the central canal-- - Decreased Decadron to 4 mg IV bid - Continue Flexeril 10 mg p.o. 4 times daily as needed muscle spasm. - K pad. - [place] 5/325, 1 p.o. every 6 hours as needed moderate pain. - Morphine sulfate 4 mg IV every 2 hours as needed severe pain. - Consult Dr. Rowe from orthopedic spine surgery - patient is considering surgery vs pain management trial - PT eval Diabetes mellitus II - bsgs ac & hs, ss - blood sugars have been a bit elevated, decadron decreased and hopefully this will lead to better control of his bsgs. - consult pharmacy for glucose management while taking steroids - A1c pending Hyperlipidemia-- Continue atorvastatin 40 mg daily. 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 He does however have to take breaks when going up stairs or he becomes sob. He does not have a cardiac history or history of heart failure. He is hyperglycemic with steroids here at the hospital.. His RCRI is 0.9% risk of cardiac complications after surgery. He is optimized for surgery should he decide to have it. Will order EKG and chest X- ray
[2018-04-09] MEDS ORDERED: PHARMACY GLYCEMIC MGMT CONSULT SCH (11:54)
--- NOTE | 2018-04-09 12:10 | Pharmacy Progress Note ---
Glycemic Control Intl Consult Date of Service Apr 09, 2018. Scope Glycemic Pharmacist consulted by MICHEL Hester on 04/09/18 for glycemic control and to write orders per [facility] inpatient glycemic control protocol Objective Weight (Kilograms): 123.500 Accuchecks BSG (last 24hrs): Test 04/08/18 17:04 04/08/18 20:38 04/09/18 05:48 04/09/18 08:07 Bedside Glucose 207 mg/dl (70-99) 232 mg/dl (70-99) 267 mg/dl (70-99) Random Glucose 271 mg/dl (70-99) Laboratory Data (last 24hrs) Test 04/09/18 05:48 Anion Gap 8.0 mmol/L BUN/Creatinine Ratio 22.4 Blood Urea Nitrogen 22 mg/dl Creatinine 0.97 mg/dl Potassium Level 3.9 mmol/L Sodium Level 133 mmol/L White Blood Count 15.70 K/uL Red Blood Count 4.65 M/uL Hemoglobin 14.8 g/dL Hematocrit 42.6 % Mean Corpuscular Volume 91.6 fL Mean Corpuscular Hemoglobin 31.8 pg Mean Corpuscular Hemoglobin Concent 34.7 g/dl Platelet Count 274 K/uL Mean Platelet Volume 11.1 fL Neutrophils (%) (Auto) 85.8 % Lymphocytes (%) (Auto) 8.3 % Monocytes (%) (Auto) 5.4 % Eosinophils (%) (Auto) 0.0 % Basophils (%) (Auto) 0.1 % Neutrophils # (Auto) 13.47 K/uL Lymphocytes # (Auto) 1.31 K/uL Monocytes # (Auto) 0.84 K/uL Eosinophils # (Auto) 0.00 K/uL Basophils # (Auto) 0.01 K/uL Recent Pertinent Medications Outpatient Anti-diabetic Regimen: * Metformin 1g PO BID * Actos 30mg PO Daily * Januvia 100mg PO Daily * A1c pending The patient is currently receiving: * Correctional Insulin: Novolog Correction per scale ACHS Goal Range: Low 100 mg/dL - High 150 mg/dL Correction Factor: 30 mg/dL/unit * Prandial insulin: Per carb ratio of 1 unit per 10 grams CHO consumed * Oral Agents: On Hold Risk Factors for Insulin Resistance: * Steroids: Dexamethasone 4mg IV Q6H x 5 doses- just changed to Q12H now * Diet: Type 2 DM Assessment & Plan ASSESSMENT: * 62 year old type 2 diabetic, unknown control, A1c pending, admitted for acute lower back pain, deciding surgical vs pain management treatment. * Hyperglycemic on IV Dexamethasone ATC, patient is on NovoLog CF and CR but will require some Lantus for high dose steroids, and tighter CF and CR. * Will also check BSG overnight while on steroids. * Patient will require close monitoring and adjusting of insulin orders as steroids wear off/ taper down. * Pt is maintained on oral antidiabetic agents as an outpatient. * Oral agents are not recommended for inpatient use d/t drug interactions, changing PO intake, and difficulty titrating for acute hyper/hypoglycemia. ADA recommends re-initiating outpatient oral agents 1-2 days prior to discharge if/ when appropriate if they were held on admission. * Will continue hold oral agents for admission and utilize SQ basal bolus insulin regimen which is the recommended regimen for inpatient glycemic control. * ADA & AACE recommend a goal blood sugar range 140-180 mg/dl for the majority of critically ill & non-critically ill patients. However, more stringent targets may be selected in individual cases. Will utilize more stringent goal of 110-140mg/dl based on patient age & comorbidities. Additionally, tighter glycemic control is warranted to facilitate wound/infection healing. PLAN FOR INPATIENT GLYCEMIC CONTROL: * Holding outpatient oral diabetes medications * Basal insulin with LANTUS SQ BID starting now * BSG < 120mg/dl - 5 units * BSG 120-200mg/dl - 15 units * BSG > 200mg/dl - 20 units * Correctional Insulin with NOVOLOG per scale ACHS or Q6hrs while NPO and at 0000 and 0400 * CHANGE: Goal Range: Low 110 mg/dL - High 140 mg/dL * TIGHTEN: Correction Factor: 15 mg/dL/unit * TIGHTEN: Nutritional / Prandial insulin per carb ratio of 1 unit per 4 grams CHO consumed * Please note that the plan above was derived based on current level of insulin resistance and hospital stress. These recommendations are appropriate for inpatient admission only. Plan of care upon discharge will need to be reassessed to avoid potential outpatient hypo/hyperglycemia. Thank you.
[2018-04-09] MEDS: INSULIN GLARGINE SOLOSTAR 100 UNITS/ML 3 ML PEN SC SCH ×2 (13:45→21:26)
[2018-04-09 15:15] VITALS: BP 184/78; PULSE 72; TEMP 36.6; O2SAT 93
[2018-04-09] MEDS ORDERED: HydrALAZINE HCL 20 MG/ML VIAL IV. PRN (15:30)
[2018-04-09] MEDS: HYDROCODONE/ACETAMIN 5/325MG TAB PO PRN (15:31)
[2018-04-09 16:49] VITALS: BP 169/72
[2018-04-09] MEDS: CYCLOBENZAPRINE HCL 10 MG TAB PO PRN (16:53)
[2018-04-09] MEDS: MoRPHine SULFATE 4 MG/ML 1 ML CARP\\VIAL IV PRN ×2 (18:37→23:59)
[2018-04-09 23:32] VITALS: BP 142/69; PULSE 71; TEMP 36.7; O2SAT 92
[2018-04-10] MEDS: INSULIN ASPART 100 UNITS/ML 3 ML PEN SC SCH ×5 (04:09→20:46)
[2018-04-10] MEDS: MoRPHine SULFATE 4 MG/ML 1 ML CARP\\VIAL IV PRN ×2 (04:14→13:36)
[2018-04-10] MEDS: DEXAMETHASONE INJ 4 MG in SYRINGE 0 ML IV SCH ×2 (05:35→18:44)
[2018-04-10 05:46] LABS: HEMOGLOBIN 15.1 g/dL (14.0-18.0); IG# 0.05 K/uL (0.00-0.02); LYMPH % 17.8 %; LYMPH ABS # 2.16 K/uL (1.2-3.4); MEAN CELL VOLUME 91.7 fL (80-100); MEAN CORPUSCULAR HEMOGLOBIN 31.5 pg (25-34); MEAN CORPUSCULAR HGB CONC 34.3 g/dl (32-36); MEAN PLATELET VOLUME 10.7 fL (7.4-10.4); MONO % 8.1 %; MONO ABS # 0.99 K/uL (0.11-0.59); NEUT % 73.7 %; NEUT ABS # 8.95 K/uL (1.4-6.5); PLATELET COUNT 246 K/uL (130-400); RED CELL DISTRIBUTION WIDTH CV 12.8 % (11.5-14.5); RED CELL DISTRIBUTION WIDTH SD 42.8 fL (36.4-46.3); WHITE BLOOD COUNT 12.15 K/uL (4.8-10.8)
[2018-04-10 06:22] LABS: ALBUMIN 3.9 gm/dl (3.4-5.0); CALCIUM 8.9 mg/dl (8.5-10.1); CREATININE 0.9 mg/dl (0.60-1.40); POTASSIUM 3.9 mmol/L (3.5-5.1); TOTAL PROTEIN 7.5 gm/dl (6.4-8.2)
[2018-04-10 07:23] VITALS: BP 132/74; PULSE 66; TEMP 36.8; O2SAT 92
[2018-04-10] MEDS ORDERED: MAGNESIUM HYDROXIDE SUSP 30 ML UDC PO PRN (08:45)
[2018-04-10] MEDS ORDERED: POLYETHYLENE (MIRALAX) 17 GM PACK PO PRN (08:45)
[2018-04-10] MEDS: ATORVASTATIN 20 MG TAB PO SCH (09:00)
[2018-04-10] MEDS ORDERED: GABAPENTIN 300 MG CAP PO SCH (09:00)
[2018-04-10] MEDS: INSULIN GLARGINE SOLOSTAR 100 UNITS/ML 3 ML PEN SC SCH ×2 (09:17→20:46)
[2018-04-10] MEDS: LISINOPRIL/HCTZ 20/12.5MG TAB PO SCH (09:17)
--- NOTE | 2018-04-10 09:22 | Pain Management Consultation ---
Pain Management Consultation Date of Consultation Apr 10, 2018. Reason for Consultation Right lower extremity radicular pain Pain Location 1 - 2 - History Mr. Vizcaino is a 62-year-old white male who was admitted to [facility] due to intractable right-sided lumbosacral pain radiating to the gluteal and in the right lower extremity to the dorsal foot with paresthesias. The patient reported onset a few days prior to admission without known injury. 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 He describes the pain as shooting, sharp and burning in characteristic aggravated with standing and ambulatory activities. Patient denies any bowel or bladder incontinence. The patient rates his pain at a 0-8/ 10. He is most comfortable in the left lateral decubitus position. He is reporting sleep interference as well as interference of his ability to complete daytime activities. Patient denies left lower extremity radicular pain. Patient has been on a Medrol Dosepak since prior to admission as well as cyclobenzaprine with minimal improvement in symptoms. Patient denies weaknesses footdrop or falling episodes. He has discussed the possibility of surgical intervention with Dr. Rowe for later today. He reports morphine is moderately effective at diminishing his pain which contributes to some mild sedation. Most recent bowel movement was 2-3 days ago. He denies abdominal fullness. Patient has no further constitutional complaints. Plan of care discussed with Dr. Caldera. Past Medical/Surgical History (1) Diabetes mellitus (2) Hypertension (3) Lumbar back pain with radiculopathy affecting right lower extremity Social / Work History Smoking Status: Current every day smoker Smokeless Tobacco Use: No Alcohol Use: none Drug Use: none Marital Status: Housing Status: lives with family Occupation: unemployed Allergies Coded Allergies: No Known Allergies (Unverified , 04/07/18) Medications Current Inpatient Medications Medications (Trade) Dose Ordered Sig/Sander Route Start Time Stop Time Status Last Admin Dose Admin Acetaminophen (Tylenol Tab) 650 mg Q4H PRN PO 04/08/18 00:30 05/08/18 00:29 Heparin Sodium (Porcine) (Heparin Sq 5000 Unit/0.5ml) 5,000 unit Q12 SQ 04/08/18 09:00 05/08/18 08:59 04/09/18 21:27 5,000 UNIT Atorvastatin Calcium (Lipitor Tab) 40 mg DAILY PO 04/08/18 09:00 05/08/18 08:59 04/09/18 08:49 40 MG Cyclobenzaprine HCl (Flexeril Tab) 10 mg QID PRN PO 04/08/18 00:30 05/08/18 00:29 04/09/18 16:53 10 MG Ondansetron HCl (Zofran Inj) 4 mg Q6H PRN IV 04/08/18 00:45 05/08/18 00:44 Insulin Aspart (novoLOG ASPART) SLIDING SCALE If C... ACHS SC 04/08/18 07:00 05/08/18 06:59 04/09/18 21:26 6 UNITS Glucose (Glucose 40% Gel) 15-30 GRAMS 15 GRAMS... UD PRN PO 04/08/18 00:45 05/08/18 00:44 Glucose (Glucose Chew Tab) 4-8 Tablets 4 Tabl... UD PRN PO 04/08/18 00:45 05/08/18 00:44 Dextrose (Dextrose 50% 50ML Syringe) 25-50ML OF 50% DW IV FOR... UD PRN IV 04/08/18 00:45 05/08/18 00:44 Glucagon (Glucagon Inj) 1 mg UD PRN SQ 04/08/18 00:45 05/08/18 00:44 Carbohydrates (Carbohydrates For Hypoglycemia) 15-30 GRAMS 15 grams if BSG 54-69... UD PRN PO 04/08/18 00:45 05/08/18 00:44 Acetaminophen 100 ml @ 400 mls/hr Q8H PRN IV 04/08/18 00:45 05/08/18 00:44 04/09/18 05:20 400 MLS/HR Acetaminophen/ Hydrocodone Bitart ([place] 5/325 Tab) 1 tab Q6H PRN PO 04/08/18 03:30 04/22/18 03:29 04/09/18 15:31 1 TAB Morphine Sulfate (MoRPHine SULFATE INJ) 4 mg Q4H PRN IV 04/08/18 16:45 04/22/18 03:29 04/10/18 04:14 4 MG HCTZ/Lisinopril (Prinzide 20-12.5MG Tab) 1 tab QAM PO 04/09/18 09:00 05/09/18 08:59 04/09/18 08:49 1 TAB Dexamethasone Sodium Phosphate 4 mg/Syringe 1 ml @ 1 mls/min Q12H IV 04/09/18 18:00 05/09/18 17:59 04/10/18 05:35 1 MLS/MIN Miscellaneous Information (Consult Glycemic Management Pharmacy) 1 ea UD N/A 04/09/18 11:54 05/09/18 11:53 Insulin Glargine (Lantus Solostar Pen) SEE PROTOCOL BID SC 04/09/18 12:30 05/09/18 12:29 04/09/18 21:26 20 UNITS Insulin Aspart (novoLOG ASPART) SLIDING SCALE If C... 0000,0400 SC 04/10/18 00:00 05/10/18 00:00 04/10/18 04:09 2 UNITS Hydralazine HCl (HydrALAZINE INJ) 10 mg Q4H PRN IV. 04/09/18 15:30 05/09/18 15:29 Gabapentin (Neurontin Cap) 300 mg TID PO 04/10/18 09:00 05/10/18 08:59 Polyethylene (Miralax Powder Packet) 17 gm DAILY PRN PO 04/10/18 08:45 05/10/18 08:44 Magnesium Hydroxide (Milk Of Magnesia Susp) 30 ml Q6H PRN PO 04/10/18 08:45 05/10/18 08:44 Review of Systems Constitutional: Negative for fever, chills, sweats Eyes: Negative for eye pain, photophobia, drainage Ear, nose, mouth, throat: Negative for ear pain, nasal congestion, mouth lesions , change in voice Respiratory: Negative for wheezing, sputum production Cardiovascular: Negative for chest pain, palpitations, calf pain Gastrointestinal: Negative for abdominal pain, belching, bloating Genitourinary: Negative for dysuria, urinary incontinence, urinary urgency Musculoskeletal: Negative for deformities Integumentary: Negative for nail changes, skin yellowing, pruritus Neurological: Negative for abnormal speech, seizure type activity Physical Exam Height & Weight: Height 5 feet, 10.00 inches. Weight 123.500 (Kilograms) 272 (Pounds) Last Vital Signs Documentation Date Time Temp Pulse Resp B/P (MAP) Pulse Ox O2 Delivery O2 Flow Rate FiO2 04/10/18 08:00 Room Air 04/10/18 07:23 36.8 66 16 132/74 (93) 92 Exam: General: Mr. Vizcaino is lying quietly upon entering the room in no acute distress in the left lateral decubitus position. Patient is accompanied by his . Patient appeared to be somewhat hard of hearing but communication was effective. Speech and thought process was appropriate. Cognition was intact. Abdomen: Soft and nondistended. Somewhat protuberant. Nontender to palpation. Back/spine: Slight loss of lordosis. Nontender over the midline. No focal midline, facet joint or SI joint tenderness to provocative testing. Patient has a 0.5 cm myoneural trigger point the right medial superior gluteal region to direct palpation with tenderness. No appreciable paravertebral, quadratus informed gluteal muscular spasm. Lower extremities: Nontender to palpation. Strength testing 5/5 with dorsiflexion, EHL testing, plantarflexion, and knee flexion/extension. Sensation was intact to sharp and dull without focal deficit. Straight leg raising was positive on the right negative on the left. Neurologic: Cranial nerves grossly intact. Ambulation not witnessed. Laboratory Laboratory Results (Last CBC): 04/10/18 05:30 Red Blood Count 4.80, Mean Corpuscular Volume 91.7, Mean Corpuscular Hemoglobin 31.5, Mean Corpuscular Hemoglobin Concent 34.3, Mean Platelet Volume 10.7 H, Neutrophils (%) (Auto) 73.7, Lymphocytes (%) (Auto) 17.8, Monocytes (%) (Auto) 8.1, Eosinophils (%) (Auto) 0.0, Basophils (%) (Auto) 0.0, Neutrophils # (Auto) 8.95 H, Lymphocytes # (Auto) 2.16, Monocytes # (Auto) 0.99 H, Eosinophils # ( Auto) 0.00, Basophils # (Auto) 0.00 Imaging MRI: reports reviewed MRI Findings Patient: LINDA VIZCAINO Address1: [address] [place] [address] Rec: [id number] Address2: [facility] [address] Ac[address] ID: [id number] [facility] Zip: [place] [id number] Date: 1955 Sex: M Room/Bed: Ref Phy: Chava Georges PA-C SC: RAUL Att Phy: Report #: [id number] Criss Phy: Chava Georges PA-C Test: LSWOC Admit Phy: Rn Pacu: CUSTCH Interpreting Phy: Zi Haddad MD Diagnosis: RIGHT HIP PAIN Ordering Phy: Macie Babcock PA-C Service Date: 04/07/18 Admit Date: 04/07/18 MNE: [id number] CONF: DICTATED BY: Zi Haddad MD]] CC: Braden Gonzales M.D. Hanna, John, PA-C Koch, Brooke .CATARINO Endcc: [~ rep ct add3]] MRI OF THE LUMBAR SPINE WITHOUT CONTRAST CLINICAL HISTORY: Low back pain with right-sided radiculopathy. Leg weakness. COMPARISON STUDY: Lumbar spine radiographs April 07, 2018. TECHNIQUE: Utilizing a 1.5 Thuy magnet and dedicated coil, multiplanar, multiecho imaging of the lumbar spine was performed without IV contrast. FINDINGS: For purposes of numbering on this exam, the L5-S1 disc space is assigned to axial image 27 of 30. There is 3 mm retrolisthesis of L4 and L5 due to facet arthrosis. Vertebral body heights are maintained. There is no suspicious marrow replacement. No intracanalicular mass or fluid collection is present. Conus terminates at the L1 level. Paravertebral soft tissues are unremarkable. L1-2: The central canal and the neural foramen are patent. L2-3: Tiny right paracentral disc protrusion is noted. Central canal and neural foramen are patent. L3-4: There is facet arthrosis. There is minimal disc bulge. Central canal and neural foramen are patent. L4-5: Note is made of grade I anterolisthesis due to facet arthrosis. There is uncovering of the disc. Note is made of a 7 mm right foraminal disc extrusion. This may contact the exiting right L4 nerve root. It is made of severe facet arthrosis at this level with ligamentous hypertrophy. There is moderate narrowing of the central canal and lateral recesses. L5-S1: A small central disc protrusion is noted. There is mild narrowing of the central canal. Neural foramen are patent. IMPRESSION: 1. 7 mm right foraminal disc extrusion at L4-L5 which may contact the right exiting right L4 nerve root. 2. Moderate central canal stenosis at L4-L5 due to mild anterolisthesis, uncovering of the disc, facet arthrosis and ligamentous hypertrophy. 3. Small central disc protrusion at L5-S1 that results in mild narrowing of the central canal. Electronically signed by: Zi Haddad M.D. 04/07/2018 10:49 PM Dictated Date/Time: 04/07/2018 10:42 PM The status of this report is Signed. Draft = Not yet reviewed or approved by Radiologist. Signed = Reviewed and approved by Radiologist. <AttendingPhy></AttendingPhy> <FamilyPhy>Chava Georges PA-C</FamilyPhy> < PrimaryPhy>Chava Georges PA-C</PrimaryPhy> <UnitNumber>[id number]</UnitNumber> < VisitNumber>[id number]</VisitNumber> <PatientName>LINDA VIZCAINO</PatientName> < DateOfBirth>1955</DateOfBirth> <Location>[facility]</Location> <ServiceDate></ServiceDate> <MNE>ESINDI</MNE> <OrderingPhy>Macie Babcock PA-C</ OrderingPhy> <OrderingPhyMNE Past Records Previous Records: personally reviewed by [facility] [place] Drug Monitoring Program Search Results: patient reviewed within database, no issues identified Opioid Risk Assessment Risk assessment performed, no issues identified Assessment 1. Lumbar radiculopathy-right lower extremity in an L4 distribution 2. Right foraminal disc extrusion at L4-5 contacting the exiting right L4 nerve root 3. Lumbar spinal canal stenosis L4-5 and L5-S1 4. Diabetes ijnplsbf-jri-ylfgzde-dependent Recommendations 1. We discussed his symptomatic presentation as well as MRI findings. We discussed treatment options. He is currently in discussion with Dr. Miller regarding the possibility pursuing surgical intervention. We discussed pursuing a right-sided L4-5 transforaminal RADHA at length including the inherent risk and potential benefits. We discussed pursuing RADHA in the outpatient setting tomorrow which would require discharge from the hospital tomorrow morning. Patient will continue to discuss with his as well as reevaluation with Dr. Rowe later this morning to determine treatment pathway. 2. Initiate gabapentin 300 mg nightly 1 day, twice daily 1 day then 3 times daily. Side effects and benefits were reviewed. 3. Maintain current analgesic regimen without change
--- NOTE | 2018-04-10 09:46 | Pharmacy Progress Note ---
Pharmacy Glycemic Short Note 2 Date of Service Apr 10, 2018. OUTPATIENT ANTIDIABETIC REGIMEN: * Metformin 1g PO BID * Actos 30mg PO Daily * Januvia 100mg PO Daily * A1c = 7% on 04/09/18 Test 04/09/18 12:22 04/09/18 16:59 04/09/18 20:31 04/09/18 23:44 Bedside Glucose 228 mg/dl (70-99) 141 mg/dl (70-99) 221 mg/dl (70-99) 226 mg/dl (70-99) Test 04/10/18 04:03 04/10/18 05:30 04/10/18 08:12 Bedside Glucose 168 mg/dl (70-99) 191 mg/dl (70-99) Random Glucose 171 mg/dl (70-99) ASSESSMENT: 04/10/18 * Mr. Jensen received 86 units of insulin yesterday. BSGs noted above. * Decadron has been tapered back to q12h from q6h and patient is currently NPO for possible procedure today * BSGs are improving but still elevated * CF/CR are already at insulin calculator estimates using wt/stress of 3 * Will plan to increase Lantus scale to provide higher dose as per insulin calculator estimates 04/09/18 * 62 year old type 2 diabetic, unknown control, A1c pending, admitted for acute lower back pain, deciding surgical vs pain management treatment. * Hyperglycemic on IV Dexamethasone ATC, patient is on NovoLog CF and CR but will require some Lantus for high dose steroids, and tighter CF and CR. * Will also check BSG overnight while on steroids. * Patient will require close monitoring and adjusting of insulin orders as steroids wear off/ taper down. * Pt is maintained on oral antidiabetic agents as an outpatient. * Oral agents are not recommended for inpatient use d/t drug interactions, changing PO intake, and difficulty titrating for acute hyper/hypoglycemia. ADA recommends re-initiating outpatient oral agents 1-2 days prior to discharge if/ when appropriate if they were held on admission. * Will continue hold oral agents for admission and utilize SQ basal bolus insulin regimen which is the recommended regimen for inpatient glycemic control. * ADA & AACE recommend a goal blood sugar range 140-180 mg/dl for the majority of critically ill & non-critically ill patients. However, more stringent targets may be selected in individual cases. Will utilize more stringent goal of 110-140mg/dl based on patient age & comorbidities. Additionally, tighter glycemic control is warranted to facilitate wound/infection healing. PLAN FOR INPATIENT GLYCEMIC CONTROL: * Continue to hold outpatient oral diabetes medications * Basal insulin - increase * Lantus SQ BID as per the following scale: * BSG < 120mg/dl - 10 units * BSG 120-200mg/dl - 20 units * BSG > 200mg/dl - 25 units * Bolus insulin - no change * NovoLog per scale ACHS or Q6hrs while NPO * Goal Range: Low 110 mg/dL - High 140 mg/dL * Correction Factor: 15 mg/dL/unit * Nutritional / Prandial insulin per carb ratio of 1 unit per 4 grams CHO consumed PLAN FOR DISCHARGE: * A1c indicates acceptable outpatient control * Resume outpatient regimen on discharge as long as patient not experiencing lows at home
[2018-04-10] MEDS: HEPARIN SOD 5000 UNIT/0.5 ML CARP SQ SCH ×2 (10:58→20:47)
--- NOTE | 2018-04-10 11:58 | Progress Note ---
Progress Note Date of Service Apr 10, 2018. Progress Note Patient is a 62 year old M with acute lumbar radiculopathy scheduled for PSIF with Dr Rowe on 04/11. He has a medical history of HTN, smoking, and obesity. He is a diabetic on oral medications at home but is on insulin as an inpatient due to decadron. 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 Exam is unremarkable. Labs and studies reviewed. He is an acceptable candidate for GA on the date planned. Questions were answered and consent was obtained.
[2018-04-10] MEDS: HYDROCODONE/ACETAMIN 5/325MG TAB PO PRN (12:43)
[2018-04-10] MEDS ORDERED: NURSING VERBAL MED ORDER ONE (12:45)
[2018-04-10 12:50] VITALS: O2SAT 92
[2018-04-10 15:04] VITALS: BP 146/71; PULSE 73; TEMP 37.1; O2SAT 92
--- NOTE | 2018-04-10 15:59 | Progress Note ---
Progress Note Date of Service Apr 10, 2018. Progress Note Met with the patient and his today. We have discussed the surgery with or planning. All questions were addressed. He will be made n.p.o. after midnight tonight we will plan for lumbar decompression and fusion L4-5 tomorrow morning.
--- NOTE | 2018-04-10 17:13 | Hospitalist Progress Note ---
Hospitalist Progress Note Date of Service Apr 10, 2018. Subjective Pt evaluation today including: conversation w/ patient, physical exam, chart review, lab review, review of inpatient medication list Pain: 3/10 aching lower back pain/RLE pain PO Intake: NPO during my exam Voiding: no voiding problems Patient seen earlier this afternoon while NPO for possible surgery. Pt informed me he has decided to proceed with surgical intervention with Dr. Rowe , planned for tomorrow morning. He currently complains of a 3/10 aching pain in his lower back and RLE, with some associated numbness/tingling. He states the pain is exacerbated by movement and changes in position. He denies RLE weakness. He states he has also not moved his bowels in several days. The patient denies fevers, chills, sweats, chest pain, palpitations, claudication, cough, wheezing, shortness of breath, nausea, vomiting, abdominal pain, dysuria , hematuria, urinary retention, paralysis, weakness. Additional Comments: See HPI for pertinent positives and negatives. All other systems reviewed and negative. Objective Vital Signs Date Time Temp Pulse Resp B/P (MAP) Pulse Ox O2 Delivery O2 Flow Rate FiO2 04/10/18 15:04 37.1 73 18 146/71 (96) 92 Room Air 04/10/18 12:50 92 Room Air 04/10/18 08:00 Room Air 04/10/18 07:23 36.8 66 16 132/74 (93) 92 Room Air 04/09/18 23:45 Nasal Cannula 04/09/18 23:32 36.7 71 16 142/69 (93) 92 Room Air 04/09/18 20:00 Room Air Physical Exam Notes: General appearance: +Obese. Well-developed, well-nourished, no apparent distress Head: Normocephalic, atraumatic Eyes: Normal inspection, PERRL, EOMI ENT: Normal ENT inspection, hearing grossly normal, pharynx normal Neck: Supple, no JVD, trachea midline Respiratory/Chest: Lungs clear to auscultation, normal breath sounds, no respiratory distress Cardiovascular: Regular rate & rhythm, no gallop, no murmur Abdomen/GI: Normal bowel sounds, non-tender, soft Extremities/Musculoskeletal: Normal inspection, no calf tenderness, no pedal edema Neurological/Psych: +Decreased sensation RLE. Alert, normal mood/affect, oriented x 3 Skin: Normal color, warm/dry, no rash Laboratory Results Last 24 Hours Test 04/09/18 16:59 04/09/18 20:31 04/09/18 23:44 04/10/18 04:03 Bedside Glucose 141 mg/dl 221 mg/dl 226 mg/dl 168 mg/dl Test 04/10/18 05:30 04/10/18 08:12 04/10/18 12:07 White Blood Count 12.15 K/uL Red Blood Count 4.80 M/uL Hemoglobin 15.1 g/dL Hematocrit 44.0 % Mean Corpuscular Volume 91.7 fL Mean Corpuscular Hemoglobin 31.5 pg Mean Corpuscular Hemoglobin Concent 34.3 g/dl Platelet Count 246 K/uL Mean Platelet Volume 10.7 fL Neutrophils (%) (Auto) 73.7 % Lymphocytes (%) (Auto) 17.8 % Monocytes (%) (Auto) 8.1 % Eosinophils (%) (Auto) 0.0 % Basophils (%) (Auto) 0.0 % Neutrophils # (Auto) 8.95 K/uL Lymphocytes # (Auto) 2.16 K/uL Monocytes # (Auto) 0.99 K/uL Eosinophils # (Auto) 0.00 K/uL Basophils # (Auto) 0.00 K/uL RDW Standard Deviation 42.8 fL RDW Coefficient of Variation 12.8 % Immature Granulocyte % (Auto) 0.4 % Immature Granulocyte # (Auto) 0.05 K/uL Prothrombin Time 10.7 SECONDS Prothromb Time International Ratio 1.0 Activated Partial Thromboplast Time 25.0 SECONDS Partial Thromboplastin Ratio 1.0 Sodium Level 136 mmol/L Potassium Level 3.9 mmol/L Chloride Level 101 mmol/L Carbon Dioxide Level 27 mmol/L Anion Gap 8.0 mmol/L Blood Urea Nitrogen 23 mg/dl Creatinine 0.90 mg/dl Est Creatinine Clear Calc Drug Dose 113.6 ml/min Estimated GFR () 106.5 Estimated GFR (Non- 91.9 BUN/Creatinine Ratio 25.9 Random Glucose 171 mg/dl Calcium Level 8.9 mg/dl Magnesium Level 2.4 mg/dl Total Bilirubin 0.6 mg/dl Direct Bilirubin 0.1 mg/dl Aspartate Amino Transf (AST/SGOT) 24 U/L Alanine Aminotransferase (ALT/SGPT) 57 U/L Alkaline Phosphatase 63 U/L Total Protein 7.5 gm/dl Albumin 3.9 gm/dl Bedside Glucose 191 mg/dl 185 mg/dl Assessment and Plan 62 y/o male with a history of HTN, HLD, and DM II who presents with acute lower back pain. Acute back pain w/RLE radiculopathy--ongoing -Admit to med/surg -Lumbar MRI shows 7 mm right foraminal disc extrusion at L4-L5 which may contact the right exiting right L4 nerve root. Moderate central canal stenosis at L4-L5 due to mild anterolisthesis, uncovering of the disc, facet arthrosis and ligamentous hypertrophy. Small central disc protrusion at L5-S1 that results in mild narrowing of the central canal -Pain management consulted, appreciate recs: Pt deciding between surgery and possible outpatient epidural steroid injection. Will initiate gabapentin. Continue current pain regimen. -Ortho spine consulted, appreciate recs: Pt now agreeable to surgery, will plan for lumbar decompression and fusion tomorrow morning -NPO after midnight -RCRI score is 0.9%, acceptable risk for surgery -CXR shows low lung volumes with mild interstitial thickening and minor blunting of left lateral costophrenic angle. No consolidations or overt failure. -EKG no ischemic changes -Continue Decadron 4 mg IV BID -Continue Flexeril, Tyler, morphine prn HTN, HLD -Hold lisinopril/HCTZ before surgery tomorrow -Cover with hydralazine 10 mg IV q4h prn SBP >180 -Continue Lipitor Diabetes mellitus II--stable - Januvia, Actos on hold - Lantus BID sliding scale - Insulin sliding scale - Check BSGs q ac and qhs - BSGs improving after Decadron decreased - A1c 7.0 on 04/09 Constipation -Miralax and milk of magnesia prn added, one dose of each now DVT prophylaxis -Heparin 5000 units SC q12h -SCDs Code Status -Level I, FULL RESUSCITATION STATUS
[2018-04-10 23:14] VITALS: BP 153/79; PULSE 88; TEMP 36.9; O2SAT 95
[2018-04-11] VITALS (11 sets, daily range): BP systolic 134–157; BP diastolic 66–87; PULSE 70–86; TEMP 36.4–36.9; O2SAT 92–95
[2018-04-11] MEDS ORDERED: NURSING DECISION MEDICATION ORDER SCH (02:30)
[2018-04-11] MEDS: DEXAMETHASONE INJ 4 MG in SYRINGE 0 ML IV SCH (05:42)
[2018-04-11] MEDS ORDERED: INSULIN ASPART 100 UNITS/ML 3 ML PEN SC SCH (06:00)
[2018-04-11] MEDS: MoRPHine SULFATE 4 MG/ML 1 ML CARP\\VIAL IV PRN (06:00)
[2018-04-11] MEDS ORDERED: FENTANYL CITRATE INJ 50 MCG/1 ML 2 ML VIAL ONE ×4 (06:37→08:50)
[2018-04-11] MEDS ORDERED: MIDAZOLAM HCL 1 MG/ML 2ML VIAL ONE (06:38)
[2018-04-11] MEDS ORDERED: BUPIVACAINE/EPINEPHRINE 0.5% MPF 1:200,000 30 ML VIAL ONE (07:10)
[2018-04-11] MEDS ORDERED: BUPIVACAINE 0.5 % 5 MG/1 ML PF 10ML VIAL ONE (07:15)
--- NOTE | 2018-04-11 07:28 | History & Physical Bridge Note ---
H&P Re-Evaluation Bridge Note: I have examined the patient, reviewed the History & Physical and in the interval since the performance of the History & Physical I have noted the following changes of clinical significance: No changes noted
[2018-04-11 07:30] LABS: CALCIUM 9.1 mg/dl (8.5-10.1); CREATININE 0.9 mg/dl (0.60-1.40)
[2018-04-11] MEDS ORDERED: CEFAZOLIN SOD 3000MG/22.5 ML IV PUSH ONE (07:32)
[2018-04-11] MEDS ORDERED: NURSING VERBAL MED ORDER STA (07:51)
[2018-04-11 08:06] LABS: HEMATOCRIT 48.3 % (42-52); HEMOGLOBIN 16.7 g/dL (14.0-18.0); MEAN CELL VOLUME 92.2 fL (80-100); MEAN CORPUSCULAR HEMOGLOBIN 31.9 pg (25-34); MEAN CORPUSCULAR HGB CONC 34.6 g/dl (32-36); MEAN PLATELET VOLUME 10.9 fL (7.4-10.4); PLATELET COUNT 238 K/uL (130-400); RED CELL DISTRIBUTION WIDTH CV 12.8 % (11.5-14.5); RED CELL DISTRIBUTION WIDTH SD 42.8 fL (36.4-46.3)
[2018-04-11] MEDS ORDERED: BACITRACIN 50000 UNIT VIAL ONE (08:07)
[2018-04-11] MEDS ORDERED: BUPIVACAINE LIPOSOME 1/3% 266 MG/20 ML VIAL ONE (08:08)
[2018-04-11] MEDS ORDERED: SODIUM CHLORIDE 0.9% PF 50 ML VIAL ONE (08:09)
[2018-04-11] MEDS ORDERED: EpHEDrine SULFATE INJ 50 MG/ML AMP IV PRN (09:00)
[2018-04-11] MEDS ORDERED: ATROPINE SULFATE 0.1 MG/ML 5ML SYR IV PRN (09:00)
[2018-04-11] MEDS ORDERED: MEPERIDINE HCL 25 MG/ML CARP IV PRN (09:00)
[2018-04-11] MEDS ORDERED: ONDANSETRON INJ 2 MG/ML 2 ML VIAL IV PRN ×2 (09:00→09:30)
[2018-04-11] MEDS ORDERED: HYDROmorphone INJ 0.5 MG/0.5 ML SYR IV PRN ×2 (09:00→10:15)
[2018-04-11] MEDS ORDERED: LABETALOL HCL IV 5 MG/ML 20ML IV PRN (09:00)
[2018-04-11] MEDS ORDERED: FLOSEAL HEMOSTATIC MATRIX 10ML TOP ONE (09:17)
--- NOTE | 2018-04-11 09:25 | [facility] Operative Report ---
Operative Report Operative Date Apr 11, 2018. Pre-Operative Diagnosis Lumbar spinal stenosis with spondylolisthesis and radiculopathy Post-Operative Diagnosis Same Procedure(s) Performed 1. Lumbar decompression medial facetectomy foraminotomy L4-5 per #2 posterior spinal fusion L4-5 per #3 placement posterior instrumentation L4-5 per #4 interbody fusion L4-5 per #5 placement of titanium 11 x 26 mm cage at L4-5. #6 placement of local autograft in the posterior lateral gutters. #7 placement InFUSE collagen sponge, Nast graft in the posterior lateral gutters and ostial amp in the interbody space. Surgeon noreen Technology Coordinator Surgeon(s) Sheryl Estimated Blood Loss 200 Findings Spondylolisthesis with massive foraminal disc herniation on the right Description of Procedure Patient was met with preoperatively case discussed all questions addressed. After informed consent obtained patient was taken to the operative suite underwent intubation placed in a prone position on the Ruiz table on top of the Laron frame. All bony prominences well-padded eyes inspected to ensure no external pressure placed upon the. This point the lumbar spine was prepped and draped in the normal sterile fashion and sharp dissection with the assistance of Bovie cautery was performed down to and exposing the lamina and transverse processes of L4-5. From caudocephalad fashion complete laminectomy of L4 was performed. Mass facet hypertrophy obvious instability noted. Included foraminotomy on the right with several free fragments of disc material identified and removed. Pedicle screws then placed in L4 and L5 bilaterally with the assistance of fluoroscopy and the appropriately sized keaton placed. Through a transforaminal approach on the right complete discectomy performed endplates created to subcortical bleeding bone and an 11 x 26 mm titanium cage filled with ostium bone graft tapped in position. The rods then compressed locked in final position bilaterally. The transverse processes of L4 and L5 burred to subcortical bleeding bone. Infuse collagen sponge mass graft local autograft placed in the posterior lateral gutters. Proximally 100 cc of Exparel injected into the musculature. 15 round MARTY drain inserted. The incision was then closed with 1 Vicryl fascia 2-0 Vicryl subcutaneously and a 4 Monocryl for fashion closure Steri-Strips sterile dressings placed. Patient will continue PACU stable condition. Please note Brooklyn Saucedo was present throughout the entire procedure involved in patient positioning complex portions of the surgery and final skin closure. I attest to the content of the Intraoperative Record and any orders documented therein. Any exceptions are noted below.
[2018-04-11] MEDS ORDERED: METOCLOPRAMIDE HCL INJ 5 MG/ML 2 ML VIAL IV PRN (09:30)
[2018-04-11] MEDS ORDERED: hydrOXYzine HCL 25 MG TAB PO PRN (09:30)
[2018-04-11] MEDS ORDERED: LORAZEPAM 0.5 MG TAB PO PRN (09:30)
[2018-04-11] MEDS ORDERED: BISACODYL 10 MG SUPP PR PRN (09:30)
[2018-04-11] MEDS ORDERED: DO NOT ADMINISTER FLU VACCINE PRN (09:30)
[2018-04-11] MEDS ORDERED: SOD PHOSPHATE/SOD BIPHOSPHATE ENEMA 132 ML BTL PR PRN (09:30)
[2018-04-11] MEDS ORDERED: ACETAMINOPHEN IV 100 ML IV PRN (09:30)
[2018-04-11] MEDS ORDERED: LORAZEPAM INJ 0.5 MG in SYRINGE 0 ML IV PRN (09:30)
[2018-04-11] MEDS ORDERED: ALUMINUM/MAGNESIUM SUSP 30 ML UDC PO PRN (09:30)
[2018-04-11] MEDS ORDERED: FAMOTIDINE 20 MG TAB PO PRN (09:30)
[2018-04-11] MEDS ORDERED: ACETAMINOPHEN 500 MG TAB PO PRN (09:30)
[2018-04-11] MEDS ORDERED: NALOXONE HCL 0.4 MG/1 ML VIAL/CARP IV PRN (09:30)
[2018-04-11] MEDS ORDERED: PROMETHAZINE HCL INJ 12.5 MG in SODIUM CHLORIDE 0.9% 50ML 50 ML IV PRN (09:30)
[2018-04-11] MEDS ORDERED: MAGNESIUM HYDROXIDE SUSP 30 ML UDC PO PRN (09:30)
[2018-04-11] MEDS ORDERED: DO NOT ADMINISTER PNEUMOCOCCAL VACCINE PRN (09:30)
--- NOTE | 2018-04-11 09:32 | DIAGNOSTIC IMAGING REPORT ---
INTRAOPERATIVE RADIOGRAPHS CLINICAL HISTORY: L4-L5 spinal fusion. Fluoroscopy time: 11 seconds. FINDINGS: 2 spot fluoroscopic views of the lower lumbar spine are presented. There has been discectomy at L4-L5 with laminectomy and posterior fusion at this level. Interpedicular screws are present. The orthopedic hardware appears intact. IMPRESSION: Intraoperative images from L4 -L5 spinal fusion as above. Electronically signed by: Favio Burroughs M.D. 04/11/2018 9:30 AM Dictated Date/Time: 04/11/2018 9:30 AM
[2018-04-11] MEDS ORDERED: PROPOFOL IV EMULSION 10 MG/ML 20 ML VIAL ONE (10:03)
[2018-04-11] MEDS ORDERED: ESMOLOL HCL 10 MG/ML 10 ML VIAL ONE (10:03)
[2018-04-11] MEDS ORDERED: ROCURONIUM BROMIDE 10 MG/ML 5 ML VIAL ONE (10:03)
[2018-04-11] MEDS ORDERED: KETOROLAC TROMETHAMINE 30 MG/ML VIAL ONE (10:03)
[2018-04-11] MEDS ORDERED: PHENYLEPHRINE 100MCG/ML 5ML SYR ONE (10:03)
[2018-04-11] MEDS ORDERED: DEXAMETHASONE SOD INJ 4 MG/ML VIAL ONE (10:03)
[2018-04-11] MEDS ORDERED: LIDOCAINE HCL 2% 2 ML VIAL (20MG/ML) ONE (10:03)
[2018-04-11] MEDS ORDERED: ONDANSETRON INJ 2 MG/ML 2 ML VIAL ONE (10:03)
[2018-04-11] MEDS ORDERED: GLYCOPYRROLATE INJ 0.2 MG/ML VIAL ONE (10:03)
[2018-04-11] MEDS ORDERED: NEOSTIGMINE METHYLSULFATE 1 MG/ML 10ML VIAL ONE (10:03)
[2018-04-11] MEDS: FENTANYL CITRATE INJ 50 MCG/1 ML 2 ML VIAL IV PRN ×4 (10:13→10:36)
[2018-04-11] MEDS ORDERED: NURSING VERBAL MED ORDER ONE ×2 (11:30→14:30)
--- NOTE | 2018-04-11 11:37 | Pharmacy Progress Note ---
Pharmacy Glycemic Short Note 2 Date of Service Apr 11, 2018. OUTPATIENT ANTIDIABETIC REGIMEN: * Metformin 1g PO BID * Actos 30mg PO Daily * Januvia 100mg PO Daily * A1c = 7% on 04/09/18 Test 04/10/18 12:07 04/10/18 16:59 04/10/18 20:34 04/11/18 05:40 Bedside Glucose 185 mg/dl (70-99) 206 mg/dl (70-99) 149 mg/dl (70-99) 181 mg/dl (70-99) Test 04/11/18 06:43 04/11/18 07:01 04/11/18 10:11 Random Glucose 185 mg/dl (70-99) Bedside Glucose 173 mg/dl (70-99) 190 mg/dl (70-99) ASSESSMENT: 04/11/18 * Mr. Jensen received 68 units of insulin yesterday * He went to the OR early this AM so he did not receive his AM Lantus dose * Decadron continues at 4 mg IV q12h but 12 mg IV was pulled from the OR to be given during surgery as well * All BSGs are still above goal so will adjust Lantus orders to provide a higher dose based upon wt/stress of 3 using insulin calculator, especially with more Decadron on board. I did just speak with his nurse to give the AM Lantus dose now since he just got back from surgery. * CF/CR is already aggressive but will tighten CF just a little more to provide additional coverage until more basal is on board. Will also add overnight accuchecks in case more insulin is needed. 04/10/18 * Mr. Jensen received 86 units of insulin yesterday. BSGs noted above. * Decadron has been tapered back to q12h from q6h and patient is currently NPO for possible procedure today * BSGs are improving but still elevated * CF/CR are already at insulin calculator estimates using wt/stress of 3 * Will plan to increase Lantus scale to provide higher dose as per insulin calculator estimates 04/09/18 * 62 year old type 2 diabetic, unknown control, A1c pending, admitted for acute lower back pain, deciding surgical vs pain management treatment. * Hyperglycemic on IV Dexamethasone ATC, patient is on NovoLog CF and CR but will require some Lantus for high dose steroids, and tighter CF and CR. * Will also check BSG overnight while on steroids. * Patient will require close monitoring and adjusting of insulin orders as steroids wear off/ taper down. * Pt is maintained on oral antidiabetic agents as an outpatient. * Oral agents are not recommended for inpatient use d/t drug interactions, changing PO intake, and difficulty titrating for acute hyper/hypoglycemia. ADA recommends re-initiating outpatient oral agents 1-2 days prior to discharge if/ when appropriate if they were held on admission. * Will continue hold oral agents for admission and utilize SQ basal bolus insulin regimen which is the recommended regimen for inpatient glycemic control. * ADA & AACE recommend a goal blood sugar range 140-180 mg/dl for the majority of critically ill & non-critically ill patients. However, more stringent targets may be selected in individual cases. Will utilize more stringent goal of 110-140mg/dl based on patient age & comorbidities. Additionally, tighter glycemic control is warranted to facilitate wound/infection healing. PLAN FOR INPATIENT GLYCEMIC CONTROL: * Continue to hold outpatient oral diabetes medications * Basal insulin - increase * Lantus SQ BID as per the following scale: * BSG < 110 mg/dl - 10 units * BSG 110 - 150 mg/dl - 20 units * BSG > 150 mg/dl - 30 units * Bolus insulin - tighten CF * NovoLog per scale ACHS or Q6hrs while NPO + 00,04 checks * Goal Range: Low 110 mg/dL - High 140 mg/dL * Correction Factor: 15 mg/dL/unit * Nutritional / Prandial insulin per carb ratio of 1 unit per 4 grams CHO consumed PLAN FOR DISCHARGE: * A1c indicates acceptable outpatient control * Resume outpatient regimen on discharge as long as patient not experiencing lows at home
[2018-04-11] MEDS: GABAPENTIN 300 MG CAP PO SCH ×2 (11:45→20:59)
[2018-04-11] MEDS: ATORVASTATIN 20 MG TAB PO SCH (11:46)
[2018-04-11] MEDS: INSULIN GLARGINE SOLOSTAR 100 UNITS/ML 3 ML PEN SC SCH ×2 (11:56→20:58)
[2018-04-11] MEDS: HEPARIN SOD 5000 UNIT/0.5 ML CARP SQ SCH ×2 (11:56→20:57)
[2018-04-11] MEDS: INSULIN ASPART 100 UNITS/ML 3 ML PEN SC SCH ×3 (12:49→20:58)
[2018-04-11] MEDS: CEFAZOLIN IV 2,000 MG in SYRINGE 0 ML IV SCH ×2 (15:41→23:46)
--- NOTE | 2018-04-11 16:51 | Hospitalist Progress Note ---
Hospitalist Progress Note Date of Service Apr 11, 2018. Subjective Pt evaluation today including: conversation w/ patient, physical exam, chart review, lab review, review of inpatient medication list Patient seen postoperatively. He reports feeling well overall. He states he has some soreness in his back around the incision but it feels different than the neuropathic pain he felt prior to surgery. He currently denies any pain radiating down his right leg and denies any numbness or tingling. He is tolerating a PO diet well postop. He has not yet voided, passed gas, or had a bowel movement postop. The patient denies fevers, chills, sweats, chest pain, palpitations, claudication, cough, wheezing, shortness of breath, nausea, vomiting, abdominal pain, dysuria, hematuria, urinary retention, paralysis, weakness, numbness and tingling. Additional Comments: See HPI for pertinent positives and negatives. All other systems reviewed and negative. Objective Vital Signs Date Time Temp Pulse Resp B/P (MAP) Pulse Ox O2 Delivery O2 Flow Rate FiO2 04/11/18 15:26 36.6 80 18 144/75 (98) 95 04/11/18 15:18 93 Nasal Cannula 2.0 04/11/18 14:28 93 Nasal Cannula 2.0 04/11/18 14:22 36.7 86 18 146/82 (103) 95 Nasal Cannula 4.0 04/11/18 12:45 36.8 76 18 144/75 (98) 95 Nasal Cannula 4.0 04/11/18 12:03 36.4 70 16 142/77 (98) 95 Nasal Cannula 4.0 04/11/18 11:32 36.6 70 18 136/87 (103) 95 Nasal Cannula 4.0 04/11/18 11:30 Nasal Cannula 4.0 04/11/18 11:15 70 10 130/86 94 Nasal Cannula 4 04/11/18 11:00 80 25 147/87 94 Nasal Cannula 4 04/11/18 10:50 36.6 70 12 145/87 92 Nasal Cannula 4 04/11/18 10:40 77 12 150/125 91 Nasal Cannula 4 04/11/18 10:30 75 13 171/80 95 Nasal Cannula 4 04/11/18 10:20 68 14 181/85 95 Nasal Cannula 4 04/11/18 10:10 69 15 156/85 98 Nasal Cannula 4 04/11/18 10:00 74 10 162/107 97 Oxymask 10 04/11/18 09:54 36.9 79 14 169/103 99 Oxymask 10 04/11/18 06:19 36.5 78 17 134/66 (88) 92 Room Air 04/10/18 23:14 36.9 88 18 153/79 (103) 95 Room Air 04/10/18 19:15 Room Air Physical Exam Notes: General appearance: +Obese. Well-developed, well-nourished, no apparent distress Head: Normocephalic, atraumatic Eyes: Normal inspection, PERRL, EOMI ENT: Normal ENT inspection, hearing grossly normal, pharynx normal Neck: Supple, no JVD, trachea midline Respiratory/Chest: Lungs clear to auscultation, normal breath sounds, no respiratory distress Cardiovascular: Regular rate & rhythm, no gallop, no murmur Abdomen/GI: Normal bowel sounds, non-tender, soft Extremities/Musculoskeletal: +Lower back incision site c/d/i. Drain in place. No calf tenderness, no pedal edema Neurological/Psych: Alert, normal mood/affect, oriented x 3 Skin: Normal color, warm/dry, no rash Laboratory Results Last 24 Hours Test 04/10/18 16:59 04/10/18 20:34 04/11/18 05:40 04/11/18 06:43 Bedside Glucose 206 mg/dl 149 mg/dl 181 mg/dl White Blood Count 11.70 K/uL Red Blood Count 5.24 M/uL Hemoglobin 16.7 g/dL Hematocrit 48.3 % Mean Corpuscular Volume 92.2 fL Mean Corpuscular Hemoglobin 31.9 pg Mean Corpuscular Hemoglobin Concent 34.6 g/dl RDW Standard Deviation 42.8 fL RDW Coefficient of Variation 12.8 % Platelet Count 238 K/uL Mean Platelet Volume 10.9 fL Sodium Level 134 mmol/L Potassium Level 4.0 mmol/L Chloride Level 100 mmol/L Carbon Dioxide Level 26 mmol/L Anion Gap 8.0 mmol/L Blood Urea Nitrogen 31 mg/dl Creatinine 0.90 mg/dl Est Creatinine Clear Calc Drug Dose 113.6 ml/min Estimated GFR () 106.5 Estimated GFR (Non- 91.9 BUN/Creatinine Ratio 34.4 Random Glucose 185 mg/dl Calcium Level 9.1 mg/dl Test 04/11/18 07:01 04/11/18 10:11 Bedside Glucose 173 mg/dl 190 mg/dl Assessment and Plan 62 y/o male with a history of HTN, HLD, and DM II who presents with acute lower back pain. Acute back pain w/RLE radiculopathy--improving -Admit to med/surg -Lumbar MRI shows 7 mm right foraminal disc extrusion at L4-L5 which may contact the right exiting right L4 nerve root. Moderate central canal stenosis at L4-L5 due to mild anterolisthesis, uncovering of the disc, facet arthrosis and ligamentous hypertrophy. Small central disc protrusion at L5-S1 that results in mild narrowing of the central canal -Pain management consulted, appreciate recs: Pt deciding between surgery and possible outpatient epidural steroid injection. Will initiate gabapentin. Continue current pain regimen. -Ortho spine following -S/p lumbar decompression/fusion of L4-L5, POD #0 -D/C Decadron -Continue Flexeril, D[place], morphine prn HTN, HLD -Lisinopril/HCTZ held perioperatively, can resume tomorrow pending tomorrow's PRP -Cover with hydralazine 10 mg IV q4h prn SBP >180 -Continue Lipitor Diabetes mellitus II--stable - Julian Paiz on hold - Lantus BID sliding scale - Insulin sliding scale - Check BSGs q ac and qhs - BSGs stable, should improve w/cessation of decadron - A1c 7.0 on 04/09 Constipation -Miralax and milk of magnesia prn DVT prophylaxis -Heparin 5000 units SC q12h -SCDs Code Status -Level I, FULL RESUSCITATION STATUS Dispo -PT/OT will need to re-evaluate postop to assess need for rehab
[2018-04-11] MEDS: SODIUM CHLORIDE 0.9% 1000ML 1,000 ML IV SCH ×2 (18:03→23:46)
[2018-04-11] MEDS ORDERED: ARTIFICIAL TEARS OP SOLN OPB PRN (18:15)
[2018-04-11] MEDS: DOCUSATE SODIUM/SENNA 50/8.6MG TAB PO SCH (20:59)
[2018-04-12] VITALS (7 sets, daily range): BP systolic 101–164; BP diastolic 61–82; PULSE 68–86; TEMP 37–37.2; O2SAT 92–94
[2018-04-12] MEDS: INSULIN ASPART 100 UNITS/ML 3 ML PEN SC SCH ×6 (04:00→21:16)
[2018-04-12] MEDS ORDERED: HYDROmorphone INJ 0.5 MG/0.5 ML SYR IV PRN (06:00)
[2018-04-12 06:22] LABS: BASO % 0.1 %; BASO ABS # 0.01 K/uL (0-0.2); EOS % 0.3 %; EOS ABS # 0.04 K/uL (0-0.5); HEMATOCRIT 37.6 % (42-52); IG# 0.07 K/uL (0.00-0.02); LYMPH % 22.3 %; LYMPH ABS # 3.05 K/uL (1.2-3.4); MEAN CELL VOLUME 91.5 fL (80-100); MEAN CORPUSCULAR HEMOGLOBIN 31.6 pg (25-34); MEAN CORPUSCULAR HGB CONC 34.6 g/dl (32-36); MEAN PLATELET VOLUME 10.6 fL (7.4-10.4); MONO % 11.2 %; MONO ABS # 1.53 K/uL (0.11-0.59); NEUT % 65.6 %; NEUT ABS # 8.96 K/uL (1.4-6.5); PLATELET COUNT 222 K/uL (130-400); RED CELL DISTRIBUTION WIDTH CV 12.7 % (11.5-14.5); RED CELL DISTRIBUTION WIDTH SD 42.3 fL (36.4-46.3); WHITE BLOOD COUNT 13.66 K/uL (4.8-10.8)
[2018-04-12] MEDS: SODIUM CHLORIDE 0.9% 1000ML 1,000 ML IV SCH (06:26)
[2018-04-12 06:36] LABS: CALCIUM 8.3 mg/dl (8.5-10.1); CREATININE 0.91 mg/dl (0.60-1.40); POTASSIUM 3.6 mmol/L (3.5-5.1)
[2018-04-12] MEDS: OXYCODONE HCL IR 5 MG TAB (IMMEDIATE RELEASE) PO PRN ×3 (07:50→13:11)
[2018-04-12] MEDS: ATORVASTATIN 20 MG TAB PO SCH (09:00)
[2018-04-12] MEDS: GABAPENTIN 300 MG CAP PO SCH ×3 (09:04→21:11)
[2018-04-12] MEDS: HEPARIN SOD 5000 UNIT/0.5 ML CARP SQ SCH (09:23)
[2018-04-12] MEDS ORDERED: INSULIN GLARGINE SOLOSTAR 100 UNITS/ML 3 ML PEN SC ONE (09:30)
--- NOTE | 2018-04-12 11:02 | Pharmacy Progress Note ---
Pharmacy Glycemic Short Note 2 Date of Service Apr 12, 2018. OUTPATIENT ANTIDIABETIC REGIMEN: * Metformin 1g PO BID * Actos 30mg PO Daily * Januvia 100mg PO Daily * A1c = 7% on 04/09/18 Test 04/11/18 11:53 04/11/18 17:06 04/11/18 20:48 04/11/18 23:55 Bedside Glucose 216 mg/dl (70-99) 216 mg/dl (70-99) 202 mg/dl (70-99) 102 mg/dl (70-99) Test 04/12/18 03:52 04/12/18 04:11 04/12/18 05:07 04/12/18 08:02 Bedside Glucose 66 mg/dl (70-99) 78 mg/dl (70-99) 85 mg/dl (70-99) Random Glucose 104 mg/dl (70-99) ASSESSMENT: 04/12/18 * Mr. Jensen received 105 units of insulin yesterday * Postprandial BSGs were still above goal but patient then had a hypoglycemic episode early this AM * IV Decadron was d/c'd yesterday, last dose would have been given when in the OR * POD 1 s/p lumbar decompression/fusion * Anticipate insulin needs to decrease drastically today once steroids worn off. Will adjust basal/bolus regimen to reflect this. New est TDD ~50-80 units /day? 04/11/18 * Mr. Jensen received 68 units of insulin yesterday * He went to the OR early this AM so he did not receive his AM Lantus dose * Decadron continues at 4 mg IV q12h but 12 mg IV was pulled from the OR to be given during surgery as well * All BSGs are still above goal so will adjust Lantus orders to provide a higher dose based upon wt/stress of 3 using insulin calculator, especially with more Decadron on board. I did just speak with his nurse to give the AM Lantus dose now since he just got back from surgery. * CF/CR is already aggressive but will tighten CF just a little more to provide additional coverage until more basal is on board. Will also add overnight accuchecks in case more insulin is needed. 04/10/18 * Mr. Jensen received 86 units of insulin yesterday. BSGs noted above. * Decadron has been tapered back to q12h from q6h and patient is currently NPO for possible procedure today * BSGs are improving but still elevated * CF/CR are already at insulin calculator estimates using wt/stress of 3 * Will plan to increase Lantus scale to provide higher dose as per insulin calculator estimates 04/09/18 * 62 year old type 2 diabetic, unknown control, A1c pending, admitted for acute lower back pain, deciding surgical vs pain management treatment. * Hyperglycemic on IV Dexamethasone ATC, patient is on NovoLog CF and CR but will require some Lantus for high dose steroids, and tighter CF and CR. * Will also check BSG overnight while on steroids. * Patient will require close monitoring and adjusting of insulin orders as steroids wear off/ taper down. * Pt is maintained on oral antidiabetic agents as an outpatient. * Oral agents are not recommended for inpatient use d/t drug interactions, changing PO intake, and difficulty titrating for acute hyper/hypoglycemia. ADA recommends re-initiating outpatient oral agents 1-2 days prior to discharge if/ when appropriate if they were held on admission. * Will continue hold oral agents for admission and utilize SQ basal bolus insulin regimen which is the recommended regimen for inpatient glycemic control. * ADA & AACE recommend a goal blood sugar range 140-180 mg/dl for the majority of critically ill & non-critically ill patients. However, more stringent targets may be selected in individual cases. Will utilize more stringent goal of 110-140mg/dl based on patient age & comorbidities. Additionally, tighter glycemic control is warranted to facilitate wound/infection healing. PLAN FOR INPATIENT GLYCEMIC CONTROL: * Continue to hold outpatient oral diabetes medications * Basal insulin - decrease * Lantus 15 units this AM, then SQ BID as per the following scale: * BSG less than 140 mg/dl - 10 units * BSG 140 or above mg/dl - 20 units * Bolus insulin - loosen parameters * NovoLog per scale ACHS or Q6hrs while NPO * Goal Range: Low 110 mg/dL - High 140 mg/dL * Correction Factor: 20 mg/dL/unit * Nutritional / Prandial insulin per carb ratio of 1 unit per 6 grams CHO consumed PLAN FOR DISCHARGE: * A1c indicates acceptable outpatient control * Resume outpatient regimen on discharge as long as patient not experiencing lows at home
[2018-04-12] MEDS ORDERED: NURSING VERBAL MED ORDER ONE (12:15)
[2018-04-12] MEDS ORDERED: RXC5 PO (12:58)
--- NOTE | 2018-04-12 12:59 | Discharge Instructions ---
Discharge Instructions Date of Service Apr 12, 2018. Admission Reason for Admission: Lumbar Back Pain With Radiculopathy Affecting Discharge Discharge Diagnosis / Problem: lumbar stenosis Discharge Goals Goal(s): Improve function Activity Recommendations Activity Limitations: per Instructions/Follow-up section . Instructions / Follow-Up Instructions / Follow-Up ACTIVITY RECOMMENDATIONS: SELF CARE INSTRUCTIONS AFTER THORACIC/LUMBAR FUSIONS 1. You may walk to your tolerance. It is good exercise for your legs and back. Expect some back and intermittent leg aches and pains. 2. You may perform "counter-top" level activities (make a sandwich, oly with a project, etc.). 3. No bending or lifting of more than 10 pounds or back twisting of any nature (roll like a log when turning in bed). 4. You may ride in a car for 20-30 minutes at a time. No driving until after your first visit with your doctor. 5. Frequent changes of position and restricting sitting to 30 minutes at a time will help limit the amount of back spasms and stiffness you may experience. 6. You may discontinue the use of ambulatory aids (cane, crutches, etc.) once your strength and confidence allow. 7. You may zoning engineer the shower and let water strike your incision when you arrive home at least once daily. Do not take a tub bath, sit in a hot tub or go into a swimming pool until after your first recheck in the office. SPECIAL CARE INSTRUCTIONS: VERY IMPORTANT TO READ AND REVIEW A. Your surgical incision has been closed with a cosmetic suture under the skin that will dissolve in about 6 weeks. In 14 days, you can use a pair of clean scissors and cut the suture that is left outside of the skin at the ends of your incision. 1. The small skin tapes can be removed 7 days after surgery if they have not fallen off by that point. 2. You may keep the wound open to air as much as possible to promote healing after post-op day number 5 unless told otherwise by your doctor. 3. If you think the wound looks like it is becoming infected (redness or worsening drainage) and/or you are experiencing fever, chill or worsening back pain and muscle spasms, contact the office so that we may evaluate you as soon as possible. B. Complications are uncommon, but please contact us if you have any signs or symptoms of: 1. wound infection (fever higher than 102.5 degrees F, redness, separation of wound, drainage, or increasing pain from the incision) 2. blood clots in legs (pain, swelling, redness and warmth in legs) 3. urinary tract infection (fever higher than 102.5 degrees F, burning upon urination or increased frequency of urination) 4. nerve problems (inability to walk on your toes or heels, numbness, loss of bowel or bladder control) 5. any other symptoms that concern you C. Please call the office at if you have any concerns or questions about your operation or recovery. D. No smoking! Smoking drastically decreases the chance of a solid fusion. E. Do not take any anti-inflammatory medications (Indocin, Advil, Motrin, Aspirin, Naprosyn, etc.) as these may inhibit the chance of a solid fusion. Tylenol is okay to take for pain. MANAGING PAIN AFTER SPINAL SURGERY 1. Narcotic medication is intended for short-term use and will be provided for surgical pain. Surgical pain usually lasts for a period of 4-6 weeks. Narcotic medication includes Percocet, Vicodin, Darvocet, Tylenol #3 or Lortab. 2. Longer-term pain is more appropriately treated with non-narcotic medication such as Tylenol ES. 3. Muscle spasm is not appropriately treated with narcotics. Muscle relaxers such as Soma, Flexeril or Skelaxin can be used along with Tylenol ES. 4. Remember that we all live with some "aches and pains". This is not unusual or uncommon after an injury or as we get older. a. Back pain is expected and may include muscle spasms for 4 to 6 weeks after surgery. The pain should gradually improve. If the pain worsens for no apparent reason, please contact the office. b. Intermittent leg pain may also be experienced and should not be concerned about unless it worsens for no apparent reason. If so, please contact the office. 5. We will provide appropriate medication within the normal guidelines of their prescribed use. We will also be very cautious and aware of potential abuse and extended duration of patients' medication needs. a. Pain medications are for your comfort and to assist with sleep and rest so that the tissue can heal. They are not provided in order to return to normal activity and should not be used through the day. To do so or worsening pain at night can result from ongoing tissue damage and development of tolerance to the prescribed medicine. 6. Please allow 2-3 days to process refills. Prescriptions will not be mailed but must be picked up at the office. FOLLOW UP VISIT: Keep your scheduled follow-up appointment. Any questions, please call the office at . Current Hospital Diet Patient's current hospital diet: AHA Diet (Heart Healthy), Diabetes Type 2 Diet Discharge Diet Recommended Diet: Regular Diet Procedures Procedures Performed: 1. Lumbar decompression medial facetectomy foraminotomy L4-5 per #2 posterior spinal fusion L4-5 per #3 placement posterior instrumentation L4-5 per #4 interbody fusion L4-5 per #5 placement of titanium 11 x 26 mm cage at L4-5. #6 placement of local autograft in the posterior lateral gutters. #7 placement InFUSE collagen sponge, Nast graft in the posterior lateral gutters and ostial amp in the interbody space. Pending Studies Studies pending at discharge: no Laboratory Results Hemoglobin A1c Test 04/09/18 05:48 Range/Units Estimated Average Glucose 154 mg/dl Hemoglobin A1c 7.0 H 4.5-5.6 % Medical Emergencies . Who to Call and When: Medical Emergencies: If at any time you feel your situation is an emergency, please call 911 immediately. . Non-Emergent Contact Non-Emergency issues call your: Primary Care Provider . "Provider Documentation" section prepared by Marshall Rowe. .
[2018-04-12] MEDS ORDERED: KETOROLAC TROMETHAMINE 30 MG/ML VIAL IV PRN (13:00)
--- NOTE | 2018-04-12 13:03 | Progress Note ---
Progress Note Date of Service Apr 12, 2018. Progress Note Patient's back pain is controlled. Right leg symptoms markedly improved. Vital signs stable. MARTY drain decreasing probably. Assessment status post lumbar depression fusion per plan at this time will continue physical therapy advance his bowel regiment anticipate possible home tomorrow.
--- NOTE | 2018-04-12 18:00 | Hospitalist Progress Note ---
Hospitalist Progress Note Date of Service Apr 12, 2018. Subjective Pt evaluation today including: conversation w/ patient, physical exam, chart review, lab review, review of inpatient medication list Pain: Controlled PO Intake: Tolerating PO diet Voiding: no voiding problems Patient reports feeling well. His pain is well controlled and does not radiate down his RLE. He denies any numbness or tingling. He continues to complain of blurry vision, which began last night. This has not gotten any worse and he denies any loss of sommers of vision. He is tolerating a PO diet, voiding on his own and passing gas. He has not yet had a bowel movement postop. The patient denies fevers, chills, sweats, chest pain, palpitations, claudication, cough, wheezing, shortness of breath, nausea, vomiting, abdominal pain, dysuria , hematuria, urinary retention, paralysis, weakness, numbness and tingling. Additional Comments: See HPI for pertinent positives and negatives. All other systems reviewed and negative. Objective Vital Signs Date Time Temp Pulse Resp B/P (MAP) Pulse Ox O2 Delivery O2 Flow Rate FiO2 04/12/18 15:35 Room Air 04/12/18 15:28 37.0 86 18 117/70 (86) 94 Room Air 04/12/18 11:43 37.0 86 20 158/82 (107) 92 Room Air 04/12/18 10:41 85 93 04/12/18 08:06 93 Room Air 04/12/18 07:56 37.2 68 18 152/64 (93) 93 Room Air 04/12/18 07:30 Room Air 04/12/18 03:50 37.1 70 16 115/62 (79) 94 Room Air 04/11/18 23:50 Room Air 04/11/18 23:16 36.9 72 16 146/78 (100) 94 Room Air 04/11/18 19:23 36.8 74 18 149/74 (99) 92 Physical Exam Notes: General appearance: +Obese. Well-developed, well-nourished, no apparent distress Head: Normocephalic, atraumatic Eyes: Normal inspection, PERRL, EOMI ENT: Normal ENT inspection, hearing grossly normal, pharynx normal Neck: Supple, no JVD, trachea midline Respiratory/Chest: Lungs clear to auscultation, normal breath sounds, no respiratory distress Cardiovascular: Regular rate & rhythm, no gallop, no murmur Abdomen/GI: Normal bowel sounds, non-tender, soft Extremities/Musculoskeletal: +Lower back incision site c/d/i. Drain in place. No calf tenderness, no pedal edema Neurological/Psych: Alert, normal mood/affect, oriented x 3 Skin: Normal color, warm/dry, no rash Laboratory Results Last 24 Hours Test 04/11/18 20:48 04/11/18 23:55 04/12/18 03:52 04/12/18 04:11 Bedside Glucose 202 mg/dl 102 mg/dl 66 mg/dl 78 mg/dl Test 04/12/18 05:07 04/12/18 08:02 04/12/18 11:47 04/12/18 17:09 White Blood Count 13.66 K/uL Red Blood Count 4.11 M/uL Hemoglobin 13.0 g/dL Hematocrit 37.6 % Mean Corpuscular Volume 91.5 fL Mean Corpuscular Hemoglobin 31.6 pg Mean Corpuscular Hemoglobin Concent 34.6 g/dl Platelet Count 222 K/uL Mean Platelet Volume 10.6 fL Neutrophils (%) (Auto) 65.6 % Lymphocytes (%) (Auto) 22.3 % Monocytes (%) (Auto) 11.2 % Eosinophils (%) (Auto) 0.3 % Basophils (%) (Auto) 0.1 % Neutrophils # (Auto) 8.96 K/uL Lymphocytes # (Auto) 3.05 K/uL Monocytes # (Auto) 1.53 K/uL Eosinophils # (Auto) 0.04 K/uL Basophils # (Auto) 0.01 K/uL RDW Standard Deviation 42.3 fL RDW Coefficient of Variation 12.7 % Immature Granulocyte % (Auto) 0.5 % Immature Granulocyte # (Auto) 0.07 K/uL Sodium Level 137 mmol/L Potassium Level 3.6 mmol/L Chloride Level 102 mmol/L Carbon Dioxide Level 27 mmol/L Anion Gap 8.0 mmol/L Blood Urea Nitrogen 25 mg/dl Creatinine 0.91 mg/dl Est Creatinine Clear Calc Drug Dose 112.4 ml/min Estimated GFR () 105.1 Estimated GFR (Non- 90.6 BUN/Creatinine Ratio 27.8 Random Glucose 104 mg/dl Calcium Level 8.3 mg/dl Bedside Glucose 85 mg/dl 121 mg/dl 135 mg/dl Assessment and Plan 62 y/o male with a history of HTN, HLD, and DM II who presents with acute lower back pain. Acute back pain w/RLE radiculopathy--improving/stable -Admit to med/surg -Lumbar MRI shows 7 mm right foraminal disc extrusion at L4-L5 which may contact the right exiting right L4 nerve root. Moderate central canal stenosis at L4-L5 due to mild anterolisthesis, uncovering of the disc, facet arthrosis and ligamentous hypertrophy. Small central disc protrusion at L5-S1 that results in mild narrowing of the central canal -Pain management consulted, appreciate recs: Pt deciding between surgery and possible outpatient epidural steroid injection. Will initiate gabapentin. Continue current pain regimen. -Ortho spine following -S/p lumbar decompression/fusion of L4-L5, POD #1 -D/C Decadron -Continue Flexeril, [place], morphine prn -Toradol added by ortho HTN, HLD -Resume lisinopril/HCTZ as renal function is stable postop -Cover with hydralazine 10 mg IV q4h prn SBP >180 -Continue Lipitor Diabetes mellitus II--stable - Januvia, Actos on hold - BSG down to 66 this am, likely due to receiving Lantus 30 units last night but not Decadron - Lantus decreased to 15 units this am - Insulin sliding scale - Check BSGs q ac and qhs - A1c 7.0 on 04/09 Constipation -Miralax and milk of magnesia prn DVT prophylaxis -SCDs Code Status -Level I, FULL RESUSCITATION STATUS Dispo -PT/OT re-evaluated post-op, can return home when medically stable
[2018-04-12] MEDS: DOCUSATE SODIUM/SENNA 50/8.6MG TAB PO SCH (21:11)
[2018-04-12] MEDS: INSULIN GLARGINE SOLOSTAR 100 UNITS/ML 3 ML PEN SC SCH (21:18)
[2018-04-13] MEDS: POLYETHYLENE (MIRALAX) 17 GM PACK PO SCH ×4 (05:16→23:15)
[2018-04-13 07:31] LABS: HEMOGLOBIN 13.9 g/dL (14.0-18.0); MEAN CELL VOLUME 90.7 fL (80-100); MEAN CORPUSCULAR HEMOGLOBIN 31.5 pg (25-34); MEAN CORPUSCULAR HGB CONC 34.8 g/dl (32-36); MEAN PLATELET VOLUME 10.3 fL (7.4-10.4); PLATELET COUNT 220 K/uL (130-400); RED CELL DISTRIBUTION WIDTH CV 12.7 % (11.5-14.5); RED CELL DISTRIBUTION WIDTH SD 41.9 fL (36.4-46.3); WHITE BLOOD COUNT 12.14 K/uL (4.8-10.8)
[2018-04-13] MEDS: OXYCODONE HCL IR 5 MG TAB (IMMEDIATE RELEASE) PO PRN ×2 (07:53→08:40)
[2018-04-13 07:58] VITALS: BP 152/80; PULSE 84; TEMP 36.9; O2SAT 92
[2018-04-13 08:07] VITALS: O2SAT 92
--- NOTE | 2018-04-13 08:14 | Discharge Summary ---
Orthopedic Discharge Summary Admission Date/Reason Apr 08, 2018 at 00:27 Lumbar Back Pain With Radiculopathy Affecting. Discharge Date/Disposition Apr 13, 2018 Home Diagnosis Principal Diagnosis: Lumbar spinal stenosis with herniated nucleus pulposus Admission Physical Exam As per Admitting History & Physical. Hospital Course Patient was admitted over the weekend with inability ambulate and severe leg pain. After lengthy discussion reviewing the case with patient and his would like to undergo a lumbar decompression fusion. He tolerated this well. Postoperatively his leg pain improved he was up and amatory progressed the postop day #2 MARTY drain decreased appropriately. Subsequently discharged home. Discharge orders and instructions found on the chart for further review. Discharge Instructions Please refer to the electronic Patient Visit Report (Discharge Instructions) for additional information.
[2018-04-13 08:16] LABS: CALCIUM 8.4 mg/dl (8.5-10.1); CREATININE 0.83 mg/dl (0.60-1.40); POTASSIUM 4.2 mmol/L (3.5-5.1)
[2018-04-13] MEDS: ATORVASTATIN 20 MG TAB PO SCH (08:42)
[2018-04-13] MEDS: GABAPENTIN 300 MG CAP PO SCH ×3 (08:43→21:31)
[2018-04-13] MEDS: INSULIN GLARGINE SOLOSTAR 100 UNITS/ML 3 ML PEN SC SCH ×2 (08:54→21:34)
[2018-04-13] MEDS: INSULIN ASPART 100 UNITS/ML 3 ML PEN SC SCH ×4 (09:07→21:00)
[2018-04-13] MEDS: LISINOPRIL/HCTZ 20/12.5MG TAB PO SCH (09:46)
--- NOTE | 2018-04-13 10:41 | Hospitalist Progress Note ---
Hospitalist Progress Note Date of Service Apr 13, 2018. Subjective Pt evaluation today including: conversation w/ patient, physical exam, chart review, lab review, review of inpatient medication list Pain: 1/10 back pain PO Intake: Tolerating PO diet Voiding: no voiding problems Patient reports feeling well. He only complains of a mild 1/10 lower back pain currently. He denies any numbness or tingling. He continues to complain of blurry vision but denies any worsening. He states it did clear temporarily mid- day yesterday. He is tolerating a PO diet and voiding on his own. He is now passing gas. He denies any bowel movements. The patient denies fevers, chills , sweats, chest pain, palpitations, claudication, cough, wheezing, shortness of breath, nausea, vomiting, abdominal pain, dysuria, hematuria, urinary retention , paralysis, weakness, numbness and tingling. Additional Comments: See HPI for pertinent positives and negatives. All other systems reviewed and negative. Objective Vital Signs Date Time Temp Pulse Resp B/P (MAP) Pulse Ox O2 Delivery O2 Flow Rate FiO2 04/13/18 08:07 92 Room Air 04/13/18 07:58 36.9 84 20 152/80 (104) 92 Room Air 04/13/18 07:17 Room Air 04/12/18 23:54 Room Air 04/12/18 23:22 37.2 76 16 164/68 (100) 94 Room Air 04/12/18 15:35 Room Air 04/12/18 15:28 37.0 86 18 117/70 (86) 94 Room Air 04/12/18 11:43 37.0 86 20 158/82 (107) 92 Room Air 04/12/18 10:41 85 93 Physical Exam Notes: General appearance: +Obese. Well-developed, well-nourished, no apparent distress Head: Normocephalic, atraumatic Eyes: Normal inspection, PERRL, EOMI ENT: Normal ENT inspection, hearing grossly normal, pharynx normal Neck: Supple, no JVD, trachea midline Respiratory/Chest: Lungs clear to auscultation, normal breath sounds, no respiratory distress Cardiovascular: Regular rate & rhythm, no gallop, no murmur Abdomen/GI: Normal bowel sounds, non-tender, soft Extremities/Musculoskeletal: +Lower back incision site c/d/i. Drain in place. No calf tenderness, no pedal edema Neurological/Psych: Alert, normal mood/affect, oriented x 3 Skin: Normal color, warm/dry, no rash Laboratory Results Last 24 Hours Test 04/12/18 11:47 04/12/18 17:09 04/12/18 20:47 04/13/18 07:11 Bedside Glucose 121 mg/dl 135 mg/dl 147 mg/dl White Blood Count 12.14 K/uL Red Blood Count 4.41 M/uL Hemoglobin 13.9 g/dL Hematocrit 40.0 % Mean Corpuscular Volume 90.7 fL Mean Corpuscular Hemoglobin 31.5 pg Mean Corpuscular Hemoglobin Concent 34.8 g/dl RDW Standard Deviation 41.9 fL RDW Coefficient of Variation 12.7 % Platelet Count 220 K/uL Mean Platelet Volume 10.3 fL Sodium Level 134 mmol/L Potassium Level 4.2 mmol/L Chloride Level 102 mmol/L Carbon Dioxide Level 26 mmol/L Anion Gap 6.0 mmol/L Blood Urea Nitrogen 17 mg/dl Creatinine 0.83 mg/dl Est Creatinine Clear Calc Drug Dose 123.2 ml/min Estimated GFR () 110.1 Estimated GFR (Non- 95.0 BUN/Creatinine Ratio 21.0 Random Glucose 131 mg/dl Calcium Level 8.4 mg/dl Test 04/13/18 08:03 Bedside Glucose 120 mg/dl Assessment and Plan 62 y/o male with a history of HTN, HLD, and DM II who presents with acute lower back pain. Acute back pain w/RLE radiculopathy--improving/stable -Admit to med/surg -Lumbar MRI shows 7 mm right foraminal disc extrusion at L4-L5 which may contact the right exiting right L4 nerve root. Moderate central canal stenosis at L4-L5 due to mild anterolisthesis, uncovering of the disc, facet arthrosis and ligamentous hypertrophy. Small central disc protrusion at L5-S1 that results in mild narrowing of the central canal -Pain management consulted, appreciate recs: Pt deciding between surgery and possible outpatient epidural steroid injection. Will initiate gabapentin. Continue current pain regimen. -Ortho spine following -S/p lumbar decompression/fusion of L4-L5, POD #2 -D/C Decadron -Continue Flexeril, [place], morphine prn -Toradol added by ortho HTN, HLD -Resume lisinopril/HCTZ as renal function is stable postop -Cover with hydralazine 10 mg IV q4h prn SBP >180 -Continue Lipitor Diabetes mellitus II--stable - Januvia, Actos on hold - BSGs stable - Lantus 20 units SC BID - Insulin sliding scale - Check BSGs q ac and qhs - A1c 7.0 on 04/09 Constipation--ongoing -Miralax and milk of magnesia prn -Miralax q6h until BM per ortho, fleet enema and and dulcolax suppository also available if needed DVT prophylaxis -SCDs Code Status -Level I, FULL RESUSCITATION STATUS Dispo -Pt will require family support/assistance when returning home. will be working all day today and tomorrow. Discharge held until Tuesday afternoon so pt can go home w/ and have the assistance he needs over the weekend Continued [facility] stay due to: home environment unsafe for pt
[2018-04-13 14:51] VITALS: BP 113/74; PULSE 76; TEMP 37; O2SAT 94
[2018-04-13 20:12] VITALS: BP 119/69; PULSE 74; TEMP 36.9; O2SAT 95
[2018-04-13] MEDS: DOCUSATE SODIUM/SENNA 50/8.6MG TAB PO SCH (21:31)
[2018-04-13 22:58] VITALS: BP 138/79; PULSE 78; TEMP 37.2; O2SAT 95
[2018-04-14] MEDS: POLYETHYLENE (MIRALAX) 17 GM PACK PO SCH ×2 (05:33→12:00)
[2018-04-14 07:48] VITALS: BP 118/67; PULSE 83; TEMP 37.1; O2SAT 94
[2018-04-14] MEDS: INSULIN ASPART 100 UNITS/ML 3 ML PEN SC SCH ×2 (08:00→12:00)
[2018-04-14] MEDS ORDERED: BISACODYL 10 MG SUPP PR STA (08:26)
[2018-04-14] MEDS ORDERED: METFORMIN HCL 500 MG TAB PO SCH (08:30)
[2018-04-14] MEDS ORDERED: SITAGLIPTIN 100 MG TAB PO SCH (09:00)
[2018-04-14] MEDS ORDERED: PIOGLITAZONE TAB 15 MG TAB PO SCH (09:00)
[2018-04-14] MEDS: GABAPENTIN 300 MG CAP PO SCH ×2 (09:36→14:45)
[2018-04-14] MEDS: ATORVASTATIN 20 MG TAB PO SCH (09:37)
[2018-04-14] MEDS: LISINOPRIL/HCTZ 20/12.5MG TAB PO SCH (09:37)
--- NOTE | 2018-04-14 13:23 | Discharge Instructions ---
Discharge Instructions Date of Service Apr 14, 2018. Admission Reason for Admission: Lumbar Back Pain With Radiculopathy Affecting Discharge Discharge Diagnosis / Problem: Lumbar spinal stenosis with radiculopathy Discharge Goals Goal(s): Decrease discomfort, Improve function, Diagnostic testing, Therapeutic intervention Activity Recommendations Activity Limitations: per Instructions/Follow-up section (per orthopedic instructions) Lifting Limitations: no more than 10 pounds Driving or Machine Use: no driving until follow up with Dr. Rowe . Instructions / Follow-Up Instructions / Follow-Up You were admitted to the hospital with acute lower back pain radiating down your right leg, as well as numbness and tingling. You were evaluated by orthopedic spine surgery and underwent lumbar back surgical correction. You are now medically stable for discharge. Please limit your activity per Dr. Rowe's instructions. Medications: *You have been provided a prescription for pain medications by Dr. Rowe. DO NOT TAKE MORE THAN DIRECTED. *Continue your home medications as prescribed. Follow up: *You have been scheduled to follow up with your primary care provider, Chava Georges PA-C, on April 21 at 1:30 pm. *Dr. Rowe's nurse will call you with your follow up appointment details. Please seek medical attention if you experience fevers, chills, sweats, dizziness/lightheadedness, loss of consciousness, chest pain, shortness of breath, nausea, vomiting, numbness or tingling. Current Hospital Diet Patient's current hospital diet: AHA Diet (Heart Healthy), Diabetes Type 2 Diet Discharge Diet Recommended Diet: AHA Diet (Heart Healthy), Diabetes Type 2 Diet Procedures Procedures Performed: 1. Lumbar decompression medial facetectomy foraminotomy L4-5 per #2 posterior spinal fusion L4-5 per #3 placement posterior instrumentation L4-5 per #4 interbody fusion L4-5 per #5 placement of titanium 11 x 26 mm cage at L4-5. #6 placement of local autograft in the posterior lateral gutters. #7 placement InFUSE collagen sponge, Nast graft in the posterior lateral gutters and ostial amp in the interbody space. Pending Studies Studies pending at discharge: no Laboratory Results Hemoglobin A1c Test 04/09/18 05:48 Range/Units Estimated Average Glucose 154 mg/dl Hemoglobin A1c 7.0 H 4.5-5.6 % Medical Emergencies . Who to Call and When: Medical Emergencies: If at any time you feel your situation is an emergency, please call 911 immediately. . Non-Emergent Contact Non-Emergency issues call your: Primary Care Provider, Surgeon Call Non-Emergent contact if: you have a fever, your pain is not controlled, your pain is worsening, your pain is unusual for you, your pain is concerning you, wound has increased drainage, wound has increased redness, wound has increased pain, you have any medication questions . Past History Medical & Surgical History: (1) Spinal stenosis of lumbar region with radiculopathy (2) Lumbar back pain with radiculopathy affecting right lower extremity . "Provider Documentation" section prepared by Adrienne Aviles. .
--- NOTE | 2018-04-14 13:34 | Discharge Summary ---
Discharge Summary Date of Service Apr 14, 2018. Discharge Summary Admission Date: Apr 08, 2018 at 00:27 Discharge Date: Apr 14, 2018 Discharge Disposition: Home Principal Diagnosis: Lumbar spinal stenosis with RLE radiculopathy Problems/Secondary Diagnoses: Constipation, HTN, HLD, DM II Immunizations: Have You Had Influenza Vaccine: Unknown History of Tetanus Vaccine?: Unknown History of Pneumococcal: Unknown History of Hepatitis B Vaccine: Unknown Procedures: Lumbar MRI findings: 1. 7 mm right foraminal disc extrusion at L4-L5 which may contact the right exiting right L4 nerve root. 2. Moderate central canal stenosis at L4-L5 due to mild anterolisthesis, uncovering of the disc, facet arthrosis and ligamentous hypertrophy. 3. Small central disc protrusion at L5-S1 that results in mild narrowing of the central canal. Operative Report Operative Date Apr 11, 2018. Pre-Operative Diagnosis Lumbar spinal stenosis with spondylolisthesis and radiculopathy Post-Operative Diagnosis Same Procedure(s) Performed 1. Lumbar decompression medial facetectomy foraminotomy L4-5 per #2 posterior spinal fusion L4-5 per #3 placement posterior instrumentation L4-5 per #4 interbody fusion L4-5 per #5 placement of titanium 11 x 26 mm cage at L4-5. #6 placement of local autograft in the posterior lateral gutters. #7 placement InFUSE collagen sponge, Nast graft in the posterior lateral gutters and ostial amp in the interbody space. Surgeon soledad [employer] Specialist Surgeon(s) Sheryl Estimated Blood Loss 200 Findings Spondylolisthesis with massive foraminal disc herniation on the right Consultations: Orthopedic spine surgery Pain management Medication Reconciliation New Medications: Oxycodone HCl (Oxycodone HCl) 5 Mg Tab 5-10 MG PO Q4H PRN for Moderate - severe pain for 30 Days, #60 TAB Continued Medications: Atorvastatin (Lipitor) 40 Mg Tab 40 MG PO DAILY, TAB Cyclobenzaprine Hcl (Flexeril) 10 Mg Tab 10 MG PO BID PRN for Muscle Spasms, #21 TAB Lisinopril (Zestril) 5 Mg Tab 5 MG PO DAILY, TAB Metformin Hcl (Glucophage) 1,000 Mg Tab 1000 MG PO BID, TAB Methylprednisolone (Medrol) 4 Mg Tab 4 MG PO UD, TAB Oxycodone Immediate Rel Tab (Roxicodone Ir) 5 Mg Tab 1-2 TAB PO Q4H PRN for Pain, #24 TAB Pioglitazone (Actos) 30 Mg Tab 1 TAB PO DAILY for 90 Days, #90 TAB 3 Refills Sitagliptin Phosphate (Januvia) 100 Mg Tab 100 MG PO DAILY, TAB Discharge Exam Patient reports feeling well. His pain is well controlled. He is tolerating a PO diet well. He is voiding on his own without issue and passing gas. This morning he had several bowel movements following a Dulcolax suppository. His blurry vision is improving. The patient denies fevers, chills, sweats, chest pain, palpitations, claudication, cough, wheezing, shortness of breath, nausea, vomiting, abdominal pain, dysuria, hematuria, urinary retention, paralysis, weakness, numbness and tingling. Constitutional: No fever, No chills, No sweats Eyes: +Blurry vision improving. No worsening of vision, No eye pain, No diplopia ENT: No hearing loss, No nasal symptoms, No trouble swallowing Respiratory: No cough, No wheezing, No shortness of breath Cardiovascular: No chest pain, No claudication, No palpitations Abdomen: No pain, No nausea, No vomiting Musculoskeletal: +Back pain controlled w/oral meds. No muscle pain, No swelling Genitourinary - Male: No dysuria, No urinary retention, No hematuria Neurologic: No paralysis, No weakness, No numbness/tingling Integumentary: No rash, No itch, No color change General appearance: +Obese. Well-developed, well-nourished, no apparent distress Head: Normocephalic, atraumatic Eyes: Normal inspection, PERRL, EOMI ENT: Normal ENT inspection, hearing grossly normal, pharynx normal Neck: Supple, no JVD, trachea midline Respiratory/Chest: Lungs clear to auscultation, normal breath sounds, no respiratory distress Cardiovascular: Regular rate & rhythm, no gallop, no murmur Abdomen/GI: Normal bowel sounds, non-tender, soft Extremities/Musculoskeletal: +Lower back incision site c/d/i. Drain in place. No calf tenderness, no pedal edema Neurological/Psych: Alert, normal mood/affect, oriented x 3 Skin: Normal color, warm/dry, no rash Hospital Course 62 y/o male with a history of HTN, HLD, and DM II who presents with acute lower back pain. Acute back pain w/RLE radiculopathy--improving/stable -Admit to med/surg -Lumbar MRI shows 7 mm right foraminal disc extrusion at L4-L5 which may contact the right exiting right L4 nerve root. Moderate central canal stenosis at L4-L5 due to mild anterolisthesis, uncovering of the disc, facet arthrosis and ligamentous hypertrophy. Small central disc protrusion at L5-S1 that results in mild narrowing of the central canal -Pain management consulted, appreciate recs: Pt deciding between surgery and possible outpatient epidural steroid injection. Will initiate gabapentin. Continue current pain regimen. -Ortho spine following, ok to discharge -Drain to be removed just prior to discharge -S/p lumbar decompression/fusion of L4-L5, POD #3 -D/C Decadron -Morphine d/c'd -Continue Flexeril, oxycodone prn. Has not required Flexeril since before surgery, and no oxycodone since 04/13 -Toradol added by ortho, has not required in 2 days HTN, HLD -Resume lisinopril/HCTZ as renal function is stable postop -Cover with hydralazine 10 mg IV q4h prn SBP >180 -Continue Lipitor Diabetes mellitus II--stable - Januvia, Actos, metformin resumed 04/14 - BSGs stable - Lantus d/c'd as home oral meds resumed - Insulin sliding scale - Check BSGs q ac and qhs - A1c 7.0 on 04/09 Constipation--ongoing -Miralax and milk of magnesia prn -Pt had still not moved bowels despite Miralax q6h, give Dulcolax suppository x 1 and moved his bowels several times this morning DVT prophylaxis -SCDs Code Status -Level I, FULL RESUSCITATION STATUS Dispo -Pt will require family support/assistance when returning home. will be working all day today and tomorrow. Discharge held until Tuesday afternoon so pt can go home w/ and have the assistance he needs over the weekend Total Time Spent: Greater than 30 minutes This includes examination of the patient, discharge planning, medication reconciliation, and communication with other providers. Discharge Instructions Please refer to the electronic Patient Visit Report (Discharge Instructions) for additional information. Follow-Up PCP Dr. Soledad ortho spine Additional Copies To Chava Georges PA-C
[2018-04-14 14:01] VITALS: BP 118/67; PULSE 83; TEMP 37.1; O2SAT 94
--- NOTE | 2018-04-19 14:41 | Anesthesiology Progress Note ---
Anesthesia Post Op Note Date & Time Apr 19, 2018 at 14:39 Vital Signs Pain Intensity: 0.0 Notes Mental Status: alert / awake / arousable, participated in evaluation Pt Amnestic to Procedure: Yes Nausea / Vomiting: adequately controlled Pain: adequately controlled Airway Patency, RR, SpO2: stable & adequate BP & HR: stable & adequate Hydration State: stable & adequate Anesthetic Complications: no major complications apparent Review of EMR at this time indicates that pt had no anesthesia-related complaints or complications.
== END 2018-04-14 15:00 | disposition home or self-care (01) | DRG 455 ==
LOC: C.EDB 18:27 → C.MSN 04-08 00:27 → EDBEDREQSVC 04-08 01:04 → ENRESERV 04-08 01:08
PROVIDERS: ADMIT Hospitalist; ATTEND Nurse Practitioner Family
PROC: 3E0U0GB Introduction of Recombinant Bone Morphogenetic Protein into Joints, Open Approach (ICD-10-PCS; principal; 2018-04-11 07:45)
PROC: 0SG0071 Fusion of Lumbar Vertebral Joint with Autologous Tissue Substitute, Posterior Approach, Posterior Column, Open Approach (ICD-10-PCS; principal; 2018-04-11 07:45)
PROC: 0SG00AJ Fusion of Lumbar Vertebral Joint with Interbody Fusion Device, Posterior Approach, Anterior Column, Open Approach (ICD-10-PCS; principal; 2018-04-11 07:45)
DX: M48.061 Spinal stenosis, lumbar region without neurogenic claudication (principal); M43.16 Spondylolisthesis, lumbar region; F17.200 Nicotine dependence, unspecified, uncomplicated; E11.9 Type 2 diabetes mellitus without complications; E78.5 Hyperlipidemia, unspecified; M51.26 Other intervertebral disc displacement, lumbar region; I10 Essential (primary) hypertension; M51.36 Other intervertebral disc degeneration, lumbar region; K59.00 Constipation, unspecified